=== PATIENT | female | born 1965 | race Hispanic/Latino ===

== ENCOUNTER 2024-02-05 12:18 | Inpatient (IN) | payer OTHER ==
--- OUTSIDE RECORDS SUMMARY | 2024-02-05 12:24 | XMS REPORT | Continuity of Care Document ---
Author Name Unknown Address [address] [facility] [place] [address] [facility] thconnect Address 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 Name Role Phone Gennaro Martínez Primary Care Physician JAMIE MADRID Attending Clinician Unavailab le [id number] Attending Clinician Unavailable NHI PAGE Attending Clinician Unavailable EVI BARTON Attending Clinician Unavailable MAIRA AL Attending Clinician Unavailable Maira Al MD Attending Clinician [phone] JORDYN BRITO Attending Clinician Unavailable Jordyn Brito NP Attending Clinician [phone] JORDYN BRITO Admitting Clinician Unavailable Payers Payer Name Policy Type Policy Number Effective Date Expirati on Date Source [facility] 9 [id number] 2023 00:00:00 Problems Condition Name Condition Details Condition Category Status Onset Date Resolution Date Last Treatment Date Treating Clinician Comments Source Chest pain Chest pain Disease Active 11-26 00:00: 00 Sarah ulrich Encounter for screening mammogram for breast cancer Encounter for screening mammogram for breast cancer Disease Active 09-23 00:00: 00 Sarah ulrich Immunodefi ciency due to poorly controlled type 2 diabetes (CMS/HCC) (multi HCC) Immunodefi ciency due to poorly controlled type 2 diabetes (CMS/HCC) (multi HCC) Disease Active 09-23 00:00: 00 Sarah ulrich Type 2 diabetes mellitus with hyperlipid emia (multi HCC) Type 2 diabetes mellitus with hyperlipid emia (multi HCC) Disease Active 09-23 00:00: 00 Sarah ulrich Primary hypertensi on Primary hypertensi on Disease Active 08-19 00:00: 00 Sarah ulrich Type 2 diabetes mellitus with retinopath y, with long-term current use of insulin (multi HCC) Type 2 diabetes mellitus with retinopath y, with long-term current use of insulin (multi HCC) Disease Active 08-19 00:00: 00 Sarah ulrich Encounter for screening for lipid disorder Encounter for screening for lipid disorder Disease Active 08-19 00:00: 00 Sarah ulrich No known active problems No known active problems Disease [facility] Allergies, Adverse Reactions, Alerts Allergy Name Allergy Type Status Severity Reaction(s) Onset Date Inactive Date Treating Clinician Comments Source Liraglut ashley Propensi ty to adverse reaction s Active Nausea and Vomiting 2021-05 00:00: 00 Sarah ulrich Liraglut ashley Propensi ty to adverse reaction s Active Unknown - See comments 2021-05 00:00: 00 [facility] LIRAGLUT ASHLEY DRUG INGREDI Active Unknown-Cmnt 2021-05 00:00: 00 [facility] NO KNOWN ALLERGIE S Drug Class Active [facility] Social History Social Habit Start Date Stop Date Quantity Comments Source Sexual orientation 2023-08-01 17:35:13 Heterosexual (finding) Sarah Smith - External History of tobacco use Passive smoker Sarah tilley - External Alcoholic beverage intake 2023-11-27 00:00:00 2023-11-27 00:00:00 Lifetime non-drinker (finding) Sarah Smith - External History of Social function 2023-11-27 00:00:00 2023-11-27 00:00:00 Sarah Alexander Cigarette pack-years 2023-09-24 00:00:00 2023-09-24 00:00:00 Sarah Tirado External Cigarettes smoked current (pack per day) - Reported 2023-09-24 00:00:00 2023-09-24 00:00:00 Sarah Alexander Exposure to SARS-CoV-2 (event) 2022-03-13 00:00:00 2022-03-23 16:21:00 Not sure [facility] Sex assigned at 1965 00:00:00 1965 00:00:00 F Sarah Tirado External Smoking Status Start Date Stop Date Source Tobacco smoking consumption unknown [facility] Smokes tobacco daily 2023-09-24 00:00:00 Sarah Tirado External Medications Ordered Medication Name Filled Medication Name Start Date Stop Date Current Medication? Ordering Clinician Indication Dosage Frequency Signature (SIG) Comments Components Source Duloxetine HCl [address] Particles 11-26 08:25: 04 Yes Sarah ulrich Sitagliptin -Metformin HCl (Janumet) 50-1000 MG oral Tablet 11-26 08:25: 04 Yes Sarah ulrich Trulicity 0.75 MG/0.5ML subcutaneou s Solution Pen-injecto r 11-26 00:00: 00 Yes [id number] .75mg Q1W Inject 0.75 mg into the skin once a week. Sarah ulrich glipiZIDE 5 MG oral Tablet 11-26 00:00: 00 Yes [id number] 5mg Take 1 tablet (5 mg total) by mouth daily (before a meal). Sarah ulrich Insulin Detemir (Levemir FlexPen) 100 UNIT/ML subcutaneou s Solution Pen-injecto r 09-14 00:00: 00 11-26 00:00 :00 No 25 units sc twice daily. Sarah ulrich Atorvastati n Calcium 20 MG oral Tablet 08-25 00:00: 00 Yes [id number] 20mg QD Take 1 tablet (20 mg total) by mouth nightly. Sarah ulrich Duloxetine HCl [address] Particles 08-19 14:09: 14 Yes Sarah ulrich Sitagliptin -Metformin HCl (Janumet) 50-1000 MG oral Tablet 08-19 14:09: 14 Yes Sarah ulrich Insulin Glargine (Lantus SoloStar) 100 UNIT/ML subcutaneou s Solution Pen-injecto r 08-19 00:00: 00 Yes [id number] Inject 25 units in the morning and 25 units at night.. Sarah ulrich maalox:diph enhydrAMINE :lidocaine 2 % viscous 1:1:1 (FIRST-MOUT HWASH BLM) oral suspension 15 mL 06-26 07:15: 00 06-26 07:12 :00 No 15mL 15 mL, Oral, ONCE, 1 dose, On Thu06/26/23 at 0115, Routine [facility] insulin regular human (HUMULIN R) injection 6 Units 06-26 07:15: 00 06-26 06:32 :00 No 6U 6 Units, Subcutaneo us, ONCE, 1 dose, On Thu06/26/23 at 0115, Routine
Indicatio n for insulin: Hyperglyce [facility] NaCl 0.9% (NS) IV infusion 1,000 mL 06-26 07:15: 00 06-26 07:14 :00 No 1000mL at 999 mL/hr, Intravenou s, ONCE, 1 dose, On Thu06/26/23 at 0115, [facility] ondansetron (ZOFRAN (PF)) injection 4 mg 06-26 06:00: 00 06-26 05:54 :00 No 4mg 4 mg, Slow IV Push, ONCE, 1 dose, On Thu06/26/23 at 0000, [facility] pantoprazol e (PROTONIX) 40 mg EC tablet 06-26 00:00: 00 Yes [id number] 40mg Take 1 tablet by mouth in the morning. [facility] proMETHazin e 12.5 mg tablet 06-26 00:00: 00 Yes [id number] 12.5mg Take 1 tablet by mouth every 4 (four) hours as needed for Nausea and Vomiting (N/V). [facility] Ibuprofen (MOTRIN) 800 MG oral Tablet 2022-05 0 00:00: 00 Yes Sarah ulrich hydrOXYzine HCl 10 MG oral Tablet 02-19 00:00: 00 Yes Sarah ulrich Atorvastati n Calcium 10 MG oral Tablet 12-03 00:00: 00 Yes Sarah ulrich Alendronate Sodium 70 MG oral Tablet 12-03 00:00: 00 Yes Sarah ulrich Gabapentin 400 MG oral Capsule 12-03 00:00: 00 Yes Sarah ulrich Insulin Glargine (Lantus SoloStar) 100 UNIT/ML subcutaneou s Solution Pen-injecto r 12-03 00:00: 00 08-19 00:00 :00 No Sarah ulrich Gabapentin 100 MG oral Capsule 09-03 00:00: 00 Yes Sarah ulrich Metoprolol Succinate 25 MG oral TABLET SR 24 HR 09-03 00:00: 00 Yes Sarah ulrich Indomethaci n CR 75 MG oral Cap CR 09-03 00:00: 00 Yes Sarah ulrich TAKE 1 CAPSULE TWICE DAILY WITH MEALS. 2021-05 00:00: 00 No NaCl 0.9% (NS) bolus infusion 1,000 mL 2021-05 23:15: 00 03-24 00:10 :00 No 1000mL at 999 mL/hr, 1,000 mL, IV Infusion, ONCE, 1 dose, On 03/23/22 at 1815, MELVINA [facility] HYDROcodone -acetaminop hen (NORCO 5) 5-325 mg tablet 1 tablet 2021-05 21:30: 00 03-23 21:36 :00 No 1{tbl} 1 tablet, Oral, ONCE, 1 dose, On 03/23/22 at 1630, MELVINA [facility] methocarbam oL (ROBAXIN) tablet 1,000 mg 2021-05 21:30: 00 03-23 21:36 :00 No 1000mg 1,000 mg, Oral, ONCE, 1 dose, On 03/23/22 at 1630, [facility] metformin HCl (METFORMIN ORAL) 2021-05 19:27: 57 Yes Take by mouth. [facility] ibuprofen 600 mg tablet 2021-05 00:00: 00 Yes [id number] 600mg Take 1 tablet by mouth every 6 (six) hours as needed for Pain (scale 1-3) or Pain (scale 4-6). [facility] traMADoL 50 mg tablet 2021-05 00:00: 00 03-31 05:59 :00 No [id number] 50mg Take 1 tablet by mouth every 6 (six) hours as needed for Pain (scale 4-6) or Pain (scale 7-10) for up to 7 days. Indication s: acute pain [facility] methocarbam oL 500 mg tablet 2021-05 00:00: 00 03-27 04:59 :00 No [id number] 1000mg Take 2 tablets by mouth 4 (four) times daily for 3 days. [facility] Dose Unknown 9-16 00:00: 00 No cyclobenzap rine 10 mg tablet 8-01 00:00: 00 No 1mg Ozempic 0.25 mg or 0.5 mg (2 mg/1.5 mL) subcutaneou s pen injector 7-27 00:00: 00 No mg(2 mg/1.5 mL) Ozempic 0.25 mg or 0.5 mg (2 mg/1.5 mL) subcutaneou s pen injector 12-18 00:00: 00 No mg(2 mg/1.5 mL) hydrochloro thiazide 25 mg tablet 12-12 00:00: 00 No 1mg atorvastati n 10 mg tablet 12-12 00:00: 00 No 1mg pioglitazon e 45 mg tablet 12-12 00:00: 00 No 1mg metformin ER 750 mg tablet,exte nded release 24 hr 12-12 00:00: 00 No 1mg glimepiride 4 mg tablet 12-12 00:00: 00 No 1mg hydrochloro thiazide 25 mg tablet 12-12 00:00: 00 No 1mg atorvastati n 10 mg tablet 12-12 00:00: 00 No 1mg Dose Unknown 12-12 00:00: 00 No metformin ER 750 mg tablet,exte nded release 24 hr 12-12 00:00: 00 No 1mg glimepiride 4 mg tablet 12-12 00:00: 00 No 1mg Dose Unknown 12-02 00:00: 00 No Dose Unknown 12-02 00:00: 00 No indomethaci n ER 75 mg capsule,ext ended release 11-04 00:00: 00 No 1mg indomethaci n ER 75 mg capsule,ext ended release 11-04 00:00: 00 No 1mg Victoza 3-Jose 0.6 mg/0.1 mL (18 mg/3 mL) subcutaneou s pen injector 10-29 00:00: 00 No (18 mg/3 mL) lidocaine 5 % topical patch 10-29 00:00: 00 No 1% gabapentin 400 mg capsule 10-29 00:00: 00 No 1mg Victoza 3-Jose 0.6 mg/0.1 mL (18 mg/3 mL) subcutaneou s pen injector 10-29 00:00: 00 No (18 mg/3 mL) lidocaine 5 % topical patch 10-29 00:00: 00 No 1% gabapentin 400 mg capsule 10-29 00:00: 00 No 1mg Dose Unknown 3- 00:00: 00 No Dose Unknown 07-27 00:00: 00 No hydrochloro thiazide 25 mg tablet 07-24 00:00: 00 No 1mg hydrochloro thiazide 25 mg tablet 07-24 00:00: 00 No 1mg Victoza 3-Jose 0.6 mg/0.1 mL (18 mg/3 mL) subcutaneou s pen injector 07-23 00:00: 00 No (18 mg/3 mL) lidocaine 5 % topical patch 07-23 00:00: 00 No 1% pioglitazon e 45 mg tablet 07-23 00:00: 00 No 1mg atorvastati n 10 mg tablet 07-23 00:00: 00 No 1mg glimepiride 4 mg tablet 07-23 00:00: 00 No 1mg metformin ER 750 mg tablet,exte nded release 24 hr 07-23 00:00: 00 No 1mg alendronate 70 mg tablet 07-23 00:00: 00 No 1mg gabapentin 400 mg capsule 07-23 00:00: 00 No 1mg indomethaci n ER 75 mg capsule,ext ended release 07-23 00:00: 00 No 1mg Victoza 3-Jose 0.6 mg/0.1 mL (18 mg/3 mL) subcutaneou s pen injector 07-23 00:00: 00 No (18 mg/3 mL) lidocaine 5 % topical patch 07-23 00:00: 00 No 1% pioglitazon e 45 mg tablet 07-23 00:00: 00 No 1mg atorvastati n 10 mg tablet 07-23 00:00: 00 No 1mg glimepiride 4 mg tablet 07-23 00:00: 00 No 1mg metformin ER 750 mg tablet,exte nded release 24 hr 07-23 00:00: 00 No 1mg alendronate 70 mg tablet 07-23 00:00: 00 No 1mg gabapentin 400 mg capsule 07-23 00:00: 00 No 1mg indomethaci n ER 75 mg capsule,ext ended release 07-23 00:00: 00 No 1mg Dose Unknown 2020-05 00:00: 00 No Dose Unknown 2020-05 00:00: 00 No Dose Unknown 2020-05 00:00: 00 No Dose Unknown 2020-05 00:00: 00 No Dose Unknown 2020-05 00:00: 00 No Dose Unknown 2020-05 00:00: 00 No Dose Unknown 2020-05 00:00: 00 No Dose Unknown 2020-05 00:00: 00 No Dose Unknown 2020-05 00:00: 00 No Dose Unknown 2020-05 00:00: 00 No Dose Unknown 2020-05 00:00: 00 No Dose Unknown 2020-05 00:00: 00 No Dose Unknown 2020-05 00:00: 00 No Dose Unknown 2020-05 00:00: 00 No Dose Unknown 2020-05 00:00: 00 No Dose Unknown 2020-05 00:00: 00 No Dose Unknown 2020-05 00:00: 00 No Dose Unknown 2020-05 00:00: 00 No lidocaine 5 % topical patch 8 00:00: 00 No 1% pioglitazon e 45 mg tablet 8 00:00: 00 No 1mg atorvastati n 10 mg tablet 8 00:00: 00 No 1mg metformin ER 750 mg tablet,exte nded release 24 hr 01-01 00:00: 00 No 1mg glimepiride 4 mg tablet 8- 00:00: 00 No 1mg alendronate 70 mg tablet 8 00:00: 00 No 1mg gabapentin 400 mg capsule 8- 00:00: 00 No 1mg indomethaci n ER 75 mg capsule,ext ended release 01-01 00:00: 00 No 1mg lidocaine 5 % topical patch 8- 00:00: 00 No 1% pioglitazon e 45 mg tablet 8- 00:00: 00 No 1mg atorvastati n 10 mg tablet 8- 00:00: 00 No 1mg metformin ER 750 mg tablet,exte nded release 24 hr 8- 00:00: 00 No 1mg glimepiride 4 mg tablet 8- 00:00: 00 No 1mg alendronate 70 mg tablet 8- 00:00: 00 No 1mg gabapentin 400 mg capsule 8- 00:00: 00 No 1mg indomethaci n ER 75 mg capsule,ext ended release 01-01 00:00: 00 No 1mg atorvastati n 10 mg tablet - 00:00: 00 No 1mg pioglitazon e 45 mg tablet - 00:00: 00 No 1mg metformin ER 500 mg tablet,exte nded release 24 hr - 00:00: 00 No 1mg glimepiride 4 mg tablet -06 00:00: 00 No 1mg metformin ER 750 mg tablet,exte nded release 24 hr - 00:00: 00 No 1mg alendronate 70 mg tablet -06 00:00: 00 No 1mg gabapentin 400 mg capsule - 00:00: 00 No 1mg indomethaci n ER 75 mg capsule,ext ended release - 00:00: 00 No 1mg atorvastati n 10 mg tablet - 00:00: 00 No 1mg pioglitazon e 45 mg tablet -06 00:00: 00 No 1mg metformin ER 500 mg tablet,exte nded release 24 hr -06 00:00: 00 No 1mg glimepiride 4 mg tablet -06 00:00: 00 No 1mg metformin ER 750 mg tablet,exte nded release 24 hr - 00:00: 00 No 1mg alendronate 70 mg tablet 0 - 00:00: 00 No 1mg gabapentin 400 mg capsule 0 - 00:00: 00 No 1mg indomethaci n ER 75 mg capsule,ext ended release - 00:00: 00 No 1mg Voltaren 1 % topical gel 0 -18 00:00: 00 No 1% cyclobenzap rine 10 mg tablet 0 -18 00:00: 00 No 1mg Voltaren 1 % topical gel -18 00:00: 00 No 1% cyclobenzap rine 10 mg tablet 18 00:00: 00 No 1mg atorvastati n 10 mg tablet - 00:00: 00 No 1mg glimepiride 4 mg tablet 0 - 00:00: 00 No 1mg metformin ER 500 mg tablet,exte nded release 24 hr - 00:00: 00 No 1mg alendronate 70 mg tablet 0 - 00:00: 00 No 1mg pioglitazon e 15 mg tablet - 00:00: 00 No 1mg gabapentin 400 mg capsule - 00:00: 00 No 1mg indomethaci n ER 75 mg capsule,ext ended release - 00:00: 00 No 1mg atorvastati n 10 mg tablet 0 - 00:00: 00 No 1mg glimepiride 4 mg tablet 0 - 00:00: 00 No 1mg metformin ER 500 mg tablet,exte nded release 24 hr - 00:00: 00 No 1mg alendronate 70 mg tablet 0 -12 00:00: 00 No 1mg pioglitazon e 15 mg tablet 0 -12 00:00: 00 No 1mg gabapentin 400 mg capsule 0 1-12 00:00: 00 No 1mg indomethaci n ER 75 mg capsule,ext ended release - 00:00: 00 No 1mg glimepiride 4 mg tablet 2019-05 009 00:00: 00 No 1mg pioglitazon e 15 mg tablet 2019-05 009 00:00: 00 No 1mg glimepiride 4 mg tablet 2019-05 00:00: 00 No 1mg pioglitazon e 15 mg tablet 2019-05 00:00: 00 No 1mg atorvastati n 10 mg tablet 2019-05 0- 00:00: 00 No 1mg glimepiride 2 mg tablet 2019-05 0 00:00: 00 No 1mg metformin ER 500 mg tablet,exte nded release 24 hr 2019-05 0 00:00: 00 No 1mg alendronate 70 mg tablet 2019-05 0 00:00: 00 No 1mg indomethaci n ER 75 mg capsule,ext ended release 2019-05 0 00:00: 00 No 1mg gabapentin 400 mg capsule 2019-05 0 00:00: 00 No 1mg atorvastati n 10 mg tablet 2019-05 0 00:00: 00 No 1mg glimepiride 2 mg tablet 2019-05 0 00:00: 00 No 1mg metformin ER 500 mg tablet,exte nded release 24 hr 2019-05 0 00:00: 00 No 1mg alendronate 70 mg tablet 2019-05 0 00:00: 00 No 1mg indomethaci n ER 75 mg capsule,ext ended release 2019-05 0 00:00: 00 No 1mg gabapentin 400 mg capsule 2019-05 0 00:00: 00 No 1mg atorvastati n 10 mg tablet 12-11 00:00: 00 No 1mg metformin ER 500 mg tablet,exte nded release 24 hr 12-11 00:00: 00 No 1mg glimepiride 2 mg tablet 12-11 00:00: 00 No 1mg alendronate 70 mg tablet 12-11 00:00: 00 No 1mg indomethaci n ER 75 mg capsule,ext ended release 12-11 00:00: 00 No 1mg atorvastati n 10 mg tablet 12-11 00:00: 00 No 1mg metformin ER 500 mg tablet,exte nded release 24 hr 12-11 00:00: 00 No 1mg glimepiride 2 mg tablet 12-11 00:00: 00 No 1mg alendronate 70 mg tablet 12-11 00:00: 00 No 1mg indomethaci n ER 75 mg capsule,ext ended release 12-11 00:00: 00 No 1mg atorvastati n 10 mg tablet 11-27 00:00: 00 No 1mg metformin ER 500 mg tablet,exte nded release 24 hr 11-27 00:00: 00 No 1mg alendronate 70 mg tablet 11-27 00:00: 00 No 1mg gabapentin 400 mg capsule 11-27 00:00: 00 No 1mg indomethaci n ER 75 mg capsule,ext ended release 11-27 00:00: 00 No 1mg atorvastati n 10 mg tablet 11-27 00:00: 00 No 1mg metformin ER 500 mg tablet,exte nded release 24 hr 11-27 00:00: 00 No 1mg alendronate 70 mg tablet 11-27 00:00: 00 No 1mg gabapentin 400 mg capsule 11-27 00:00: 00 No 1mg indomethaci n ER 75 mg capsule,ext ended release 11-27 00:00: 00 No 1mg diclofenac sodium 75 mg tablet,areli yed release 09-12 00:00: 00 No 1mg atorvastati n 10 mg tablet 09-12 00:00: 00 No 1mg glimepiride 2 mg tablet 09-12 00:00: 00 No 1mg metformin ER 500 mg tablet,exte nded release 24 hr 09-12 00:00: 00 No 1mg diclofenac sodium 75 mg tablet,areli yed release 09-12 00:00: 00 No 1mg atorvastati n 10 mg tablet 09-12 00:00: 00 No 1mg glimepiride 2 mg tablet 09-12 00:00: 00 No 1mg metformin ER 500 mg tablet,exte nded release 24 hr 09-12 00:00: 00 No 1mg alendronate 70 mg tablet 09-12 00:00: 00 No 1mg gabapentin 100 mg capsule 09-12 00:00: 00 No 12mg gabapentin 300 mg capsule 09-12 00:00: 00 No 1mg alendronate 70 mg tablet 09-12 00:00: 00 No 1mg gabapentin 100 mg capsule 09-12 00:00: 00 No 12mg gabapentin 300 mg capsule 09-12 00:00: 00 No 1mg alendronate 70 mg tablet 2018-05 00:00: 00 No 1mg alendronate 70 mg tablet 2018-05 00:00: 00 No 1mg diclofenac sodium 75 mg tablet,areli yed release 2018-05 00:00: 00 No 1mg glimepiride 2 mg tablet 2018-05 00:00: 00 No 1mg diclofenac sodium 75 mg tablet,areli yed release 2018-05 00:00: 00 No 1mg glimepiride 2 mg tablet 2018-05 00:00: 00 No 1mg atorvastati n 10 mg tablet 2018-05 00:00: 00 No 1mg metformin ER 500 mg tablet,exte nded release 24 hr 2018-05 00:00: 00 No 1mg gabapentin 100 mg capsule 2018-05 00:00: 00 No 12mg atorvastati n 10 mg tablet 2018-05 00:00: 00 No 1mg metformin ER 500 mg tablet,exte nded release 24 hr 2018-05 00:00: 00 No 1mg gabapentin 100 mg capsule 2018-05 00:00: 00 No 12mg cyclobenzap rine 10 mg tablet 02-11 00:00: 00 03-23 00:00 :00 No [id number] 10mg Take 1 tablet by mouth 3 (three) times daily. [facility] diclofenac 50 mg EC tablet 02-04 00:00: 00 03-23 00:00 :00 No 50mg Take 1 tablet by mouth 2 (two) times daily with meals. [facility] gabapentin 100 mg capsule 01-25 00:00: 00 No 12mg gabapentin 100 mg capsule 903 00:00: 00 No 12mg lisinopril 2.5 mg tablet 14 00:00: 00 No 1mg glimepiride 2 mg tablet 14 00:00: 00 No 1mg lisinopril 2.5 mg tablet 01-05 00:00: 00 No 1mg glimepiride 2 mg tablet 01-05 00:00: 00 No 1mg metformin ER 500 mg tablet,exte nded release 24 hr 10-14 00:00: 00 No 1mg metformin ER 500 mg tablet,exte nded release 24 hr 10-14 00:00: 00 No 1mg triamcinolo ne acetonide 0.1 % topical cream 10-13 00:00: 00 No 1% metformin ER 500 mg tablet,exte nded release 24 hr 10-13 00:00: 00 No 1mg glimepiride 1 mg tablet 10-13 00:00: 00 No 2mg lisinopril 2.5 mg tablet 10-13 00:00: 00 No 1mg triamcinolo ne acetonide 0.1 % topical cream 10-13 00:00: 00 No 1% metformin ER 500 mg tablet,exte nded release 24 hr 10-13 00:00: 00 No 1mg glimepiride 1 mg tablet 10-13 00:00: 00 No 2mg lisinopril 2.5 mg tablet 10-13 00:00: 00 No 1mg metformin ER 500 mg tablet,exte nded release 24 hr 08-16 00:00: 00 No 1mg glimepiride 1 mg tablet 08-16 00:00: 00 No 2mg Levemir U-100 Insulin 100 unit/mL subcutaneou s solution 08-16 00:00: 00 No 15unit/ mL lisinopril 2.5 mg tablet 08-16 00:00: 00 No 1mg metformin ER 500 mg tablet,exte nded release 24 hr 08-16 00:00: 00 No 1mg glimepiride 1 mg tablet 08-16 00:00: 00 No 2mg Levemir U-100 Insulin 100 unit/mL subcutaneou s solution 08-16 00:00: 00 No 15unit/ mL lisinopril 2.5 mg tablet 08-16 00:00: 00 No 1mg Levemir U-100 Insulin 100 unit/mL subcutaneou s solution 06-07 00:00: 00 No 6unit/m L Levemir U-100 Insulin 100 unit/mL subcutaneou s solution 06-07 00:00: 00 No 6unit/m L Cipro 500 mg tablet 2017-05 00:00: 00 No 1mg Cipro 500 mg tablet 2017-05 00:00: 00 No 1mg glimepiride 1 mg tablet 2017-05 00:00: 00 No 2mg glimepiride 1 mg tablet 2017-05 00:00: 00 No 2mg glimepiride 1 mg tablet 2017-05 00:00: 00 No 5mg glimepiride 1 mg tablet 2017-05 00:00: 00 No 5mg Immunizations Ordered Immunization Name Filled Immunization Name Date Status Comments Source Influenza, seasonal, inj 2021-04-23 00:00:00 Completed Influenza, seasonal, inj 2021-04-23 00:00:00 Completed Moderna COVID-19 Vaccine 2021-01-29 00:00:00 Completed Moderna COVID-19 Vaccine 2021-01-29 00:00:00 Completed Moderna COVID-19 Vaccine 2020-08-08 00:00:00 Completed Moderna COVID-19 Vaccine 2020-08-08 00:00:00 Completed Moderna COVID-19 Vaccine 2020-06-29 00:00:00 Completed Moderna COVID-19 Vaccine 2020-06-29 00:00:00 Completed Influenza, Seasonal, Injectable Unknown Completed Sarah Smith - External Covid-19 Vaccine Moderna (Spikevax), Mrna-lnp, Gt Protein, Pf Unknown Completed Sarah Smith External Covid-19 Vaccine Moderna (Spikevax), Mrna-lnp, Gt Protein, Pf Unknown Completed Sarah Laureanoybold - External Covid-19 Vaccine Moderna (Spikevax), Mrna-lnp, Gt Protein, Pf Unknown Completed Sarah Laureanoybold - External Shingles IM (Shingrix) Unknown Completed Sarah Laureanoybold - External Influenza, Seasonal, Injectable Unknown Completed Sarah Lermaold - External Influenza, Seasonal, Injectable Unknown Completed Sarah Lermaold - External Covid-19 Vaccine Moderna (Spikevax), Mrna-lnp, Gt Protein, Pf Unknown Completed Sarah Laureanoybold - External Covid-19 Vaccine Moderna (Spikevax), Mrna-lnp, Gt Protein, Pf Unknown Completed Sarah Laureanoybold - External Covid-19 Vaccine Moderna (Spikevax), Mrna-lnp, Gt Protein, Pf Unknown Completed Sarah Laureanoybold - External Shingles IM (Shingrix) Unknown Completed Sarah Smith - External Vital Signs Vital Name Observation Time Observation Value Comments S ource Systolic blood pressure 2023-11-27 13:19:00 118 mm[Hg] Sarah Lermao ld - External Diastolic blood pressure 2023-11-27 13:19:00 68 mm[Hg] Sarah Lermao ld - External Heart rate 2023-11-27 13:19:00 112 /min Ovidio Smith - External Body temperature 2023-11-27 13:19:00 36.78 Anastasiya Sarah Smith - External Respiratory rate 2023-11-27 13:19:00 18 /min Sarah Smith - External Body height 2023-11-27 13:19:00 154.9 cm Alicia reyes Seybold - External Body weight 2023-11-27 13:19:00 51.71 kg Alicia reyes Seybold - External BMI 2023-11-27 13:19:00 21.54 kg/m2 Alicia reyes Seybshashank - External Oxygen saturation in Arterial blood by Pulse oximetry 2023-11-27 13:19:00 97 /min Sarah Lermao ld - External Systolic blood pressure 2023-09-24 19:09:00 122 mm[Hg] Sarah Lermao ld - External Diastolic blood pressure 2023-09-24 19:09:00 68 mm[Hg] Sarah Seybo ld - External Heart rate 2023-09-24 18:14:00 114 /min Viniciose y Seybold - External Body temperature 2023-09-24 18:14:00 36.28 Anastasiya Sarah Seybold - External Respiratory rate 2023-09-24 18:14:00 16 /min Sarah Seybold - External Body height 2023-09-24 18:14:00 154.9 cm Alicia ey Seybold - External Body weight 2023-09-24 18:14:00 50.349 kg Alicia ey Seybold - External BMI 2023-09-24 18:14:00 20.97 kg/m2 Alicia ey Seybold - External Systolic blood pressure 2023-08-20 18:55:00 124 mm[Hg] Sarah Seybo ld - External Diastolic blood pressure 2023-08-20 18:55:00 68 mm[Hg] Sarah Seybo ld - External Heart rate 2023-08-20 18:55:00 112 /min Viniciose y Seybold - External Body temperature 2023-08-20 18:55:00 36.67 Anastasiya Sarah Seybold - External Respiratory rate 2023-08-20 18:55:00 18 /min Sarah Seybold - External Body height 2023-08-20 18:55:00 154.9 cm Alicia ey Seybold - External Body weight 2023-08-20 18:55:00 50.519 kg Alicia ey Seybold - External BMI 2023-08-20 18:55:00 21.04 kg/m2 Alicia ey Seybold - External Oxygen saturation in Arterial blood by Pulse oximetry 2023-08-20 18:55:00 98 /min Sarah Laureanoybo ld - External Systolic blood pressure 2023-06-26 05:38:00 145 mm[Hg] [facility] Diastolic blood pressure 2023-06-26 05:38:00 87 mm[Hg] [facility] Heart rate 2023-06-26 05:38:00 102 /min [facility] Body temperature 2023-06-26 05:38:00 37.11 Anastasiya [facility] Respiratory rate 2023-06-26 05:38:00 16 /min [facility] Body height 2023-06-26 05:38:00 154.9 cm [facility] Body weight 2023-06-26 05:38:00 50.077 kg [facility] BMI 2023-06-26 05:38:00 20.86 kg/m2 [facility] Oxygen saturation in Arterial blood by Pulse oximetry 2023-06-26 05:38:00 100 /min [facility] Systolic blood pressure 2022-03-24 00:00:00 114 mm[Hg] [facility] Diastolic blood pressure 2022-03-24 00:00:00 54 mm[Hg] [facility] Heart rate 2022-03-24 00:00:00 104 /min [facility] Respiratory rate 2022-03-24 00:00:00 17 /min [facility] Oxygen saturation in Arterial blood by Pulse oximetry 2022-03-24 00:00:00 100 /min [facility] Body temperature 2022-03-23 21:21:00 36.61 Anastasiya [facility] Body height 2022-03-23 21:21:00 154.9 cm [facility] Body weight 2022-03-23 21:21:00 54.432 kg [facility] BMI 2022-03-23 21:21:00 22.67 kg/m2 [facility] BP Systolic 2022-03-25 10:47:00 141 mm[Hg] BP Diastolic 2022-03-25 10:47:00 71 mm[Hg] Weight Measured 2022-03-25 10:47:00 123.80 pounds Height Measured 2022-03-25 10:47:00 60.79 inches Body Temperature 2022-03-25 10:47:00 98.80 degrees Heart Rate 2022-03-25 10:47:00 100.00 /min Respiratory Rate 2022-03-25 10:47:00 18.00 /min BP Systolic 2021-12-18 10:13:00 121 mm[Hg] BP Diastolic 2021-12-18 10:13:00 78 mm[Hg] Weight Measured 2021-12-18 10:13:00 121.00 pounds Height Measured 2021-12-18 10:13:00 60.79 inches Body Temperature 2021-12-18 10:13:00 98.30 degrees Heart Rate 2021-12-18 10:13:00 113.00 /min Respiratory Rate 2021-12-18 10:13:00 17.00 /min BP Systolic 2021-10-29 11:37:00 137 mm[Hg] BP Diastolic 2021-10-29 11:37:00 84 mm[Hg] Weight Measured 2021-10-29 11:37:00 131.60 pounds Height Measured 2021-10-29 11:37:00 60.79 inches Body Temperature 2021-10-29 11:37:00 98.30 degrees Heart Rate 2021-10-29 11:37:00 105.00 /min Respiratory Rate 2021-10-29 11:37:00 18.00 /min BP Systolic 2021-07-24 15:00:00 106 mm[Hg] BP Diastolic 2021-07-24 15:00:00 71 mm[Hg] Weight Measured 2021-07-24 15:00:00 125.00 pounds Height Measured 2021-07-24 15:00:00 60.79 inches Body Temperature 2021-07-24 15:00:00 98.20 degrees Heart Rate 2021-07-24 15:00:00 117.00 /min Respiratory Rate 2021-07-24 15:00:00 17.00 /min BP Systolic 2021-04-23 10:14:00 128 mm[Hg] BP Diastolic 2021-04-23 10:14:00 82 mm[Hg] Weight Measured 2021-04-23 10:14:00 128.20 pounds Height Measured 2021-04-23 10:14:00 60.79 inches Body Temperature 2021-04-23 10:14:00 98.20 degrees Heart Rate 2021-04-23 10:14:00 113.00 /min Respiratory Rate 2021-04-23 10:14:00 16.00 /min BP Systolic 2021-04-09 08:33:00 144 mm[Hg] BP Diastolic 2021-04-09 08:33:00 87 mm[Hg] Weight Measured 2021-04-09 08:33:00 129.60 pounds Height Measured 2021-04-09 08:33:00 60.79 inches Body Temperature 2021-04-09 08:33:00 97.90 degrees Heart Rate 2021-04-09 08:33:00 109.00 /min Respiratory Rate 2021-04-09 08:33:00 16.00 /min BP Systolic 2021-01-01 09:45:00 121 mm[Hg] BP Diastolic 2021-01-01 09:45:00 75 mm[Hg] Weight Measured 2021-01-01 09:45:00 125.80 pounds Height Measured 2021-01-01 09:45:00 60.79 inches Body Temperature 2021-01-01 09:45:00 98.00 degrees Heart Rate 2021-01-01 09:45:00 105.00 /min Respiratory Rate 2021-01-01 09:45:00 16.00 /min BP Systolic 2020-09-25 09:03:00 126 mm[Hg] BP Diastolic 2020-09-25 09:03:00 79 mm[Hg] Weight Measured 2020-09-25 09:03:00 121.80 pounds Height Measured 2020-09-25 09:03:00 60.79 inches Body Temperature 2020-09-25 09:03:00 97.80 degrees Heart Rate 2020-09-25 09:03:00 102.00 /min Respiratory Rate 2020-09-25 09:03:00 17.00 /min BP Systolic 2020-08-09 17:02:00 117 mm[Hg] BP Diastolic 2020-08-09 17:02:00 65 mm[Hg] Weight Measured 2020-08-09 17:02:00 122.40 pounds Height Measured 2020-08-09 17:02:00 60.79 inches Body Temperature 2020-08-09 17:02:00 98.30 degrees Heart Rate 2020-08-09 17:02:00 115.00 /min Respiratory Rate 2020-08-09 17:02:00 18.00 /min BP Systolic 2020-02-29 09:31:00 146 mm[Hg] BP Diastolic 2020-02-29 09:31:00 81 mm[Hg] Weight Measured 2020-02-29 09:31:00 116.20 pounds Height Measured 2020-02-29 09:31:00 60.79 inches Body Temperature 2020-02-29 09:31:00 98.20 degrees Heart Rate 2020-02-29 09:31:00 108.00 /min Respiratory Rate 2020-02-29 09:31:00 BP Systolic 2019-11-22 10:02:00 115 mm[Hg] BP Diastolic 2019-11-22 10:02:00 70 mm[Hg] Weight Measured 2019-11-22 10:02:00 112.20 pounds Height Measured 2019-11-22 10:02:00 60.79 inches Body Temperature 2019-11-22 10:02:00 98.30 degrees Heart Rate 2019-11-22 10:02:00 102.00 /min Respiratory Rate 2019-11-22 10:02:00 16.00 /min Procedures Procedure Date / Time Performed Performing Clinician Source POCT GLUCOSE(AGE >30DAYS) 2023-06-26 07:14:00 Maira Al [facility] POCT GLUCOSE (AUTOMATED) 2023-06-26 07:11:00 Maira Al [facility] URINALYSIS 2023-06-26 06:01:00 Maira Al [facility] LIPASE 2023-06-26 05:56:00 Maira Al [facility] TROPONIN I 2023-06-26 05:56:00 Maira Al [facility] COMP. METABOLIC PANEL (43060) 2023-06-26 05:56:00 Maira Al [facility] CBC WITH DIFF 2023-06-26 05:56:00 Maira Al [facility] POCT GLUCOSE (AUTOMATED) 2023-06-26 05:41:00 Doctor Unassigned, Perrin [facility] NOTICE OF PRIVACY PRACTICES 2023-06-26 05:26:08 Doctor Unassigned, Perrin [facility] CONSENT/REFUSAL FOR DIAGNOSIS AND TREATMENT 2023-06-26 05:25:30 Doctor Unassigned, Perrin [facility] XR RIBS 3 VW RIGHT 2022-03-23 22:48:00 Jordyn Brito [facility] URINALYSIS 2022-03-23 21:42:00 Jordyn Brito [facility] XR CHEST 1 VW 2022-03-23 21:38:28 Jordyn Brito [facility] XR WRIST <3 VW RIGHT 2022-03-23 21:38:28 Stefan Brito [facility] LIPASE 2022-03-23 21:34:00 Jordyn Brito [facility] TROPONIN I 2022-03-23 21:34:00 Jordyn Brito [facility] THYROID STIMULATING HORMONE 2022-03-23 21:34:00 Jordyn Brito [facility] COMP. METABOLIC PANEL (28385) 2022-03-23 21:34:00 Jordyn Brito [facility] CBC WITH DIFF 2022-03-23 21:34:00 Jordyn Brito [facility] Plan of Care Planned Activity Planned Date Details Comments Source Goal Plan of Care Note [code = 63552-0] Goal Plan of Care Note [code = 38895-9] Goal Plan of Care Note [code = 03834-7] Goal Plan of Care Note [code = 81746-4] Goal Plan of Care Note [code = 60635-9] Goal Plan of Care Note [code = 59594-4] Goal Plan of Care Note [code = 38611-8] Goal Plan of Care Note [code = 77294-5] Goal Plan of Care Note [code = 34178-4] Goal Plan of Care Note [code = 60601-9] Goal Plan of Care Note [code = 81323-7] Goal Plan of Care Note [code = 16278-1] Goal Plan of Care Note [code = 03443-2] Goal Plan of Care Note [code = 37834-9] Goal Plan of Care Note [code = 44002-3] Goal Plan of Care Note [code = 04515-8] Goal Plan of Care Note [code = 11842-0] Goal Plan of Care Note [code = 57416-6] Goal Plan of Care Note [code = 41574-8] Goal Plan of Care Note [code = 30367-9] Goal Plan of Care Note [code = 14320-3] Goal Plan of Care Note [code = 62665-8] Goal Plan of Care Note [code = 56288-0] Goal Plan of Care Note [code = 04322-1] Goal Plan of Care Note [code = 43473-6] Goal Plan of Care Note [code = 31882-3] Goal Plan of Care Note [code = 66775-7] Goal Plan of Care Note [code = 34325-3] Goal Plan of Care Note [code = 43285-2] Goal Plan of Care Note [code = 64845-0] Goal Plan of Care Note [code = 41230-0] Goal Plan of Care Note [code = 42044-7] Goal Plan of Care Note [code = 87657-7] Goal Plan of Care Note [code = 10000-3] Goal Plan of Care Note [code = 07020-6] Goal Plan of Care Note [code = 05013-5] Goal Plan of Care Note [code = 54011-4] Goal Plan of Care Note [code = 62687-2] Goal Plan of Care Note [code = 33706-4] Goal Plan of Care Note [code = 19402-1] Goal Plan of Care Note [code = 58226-7] Goal Plan of Care Note [code = 16105-7] Goal Plan of Care Note [code = 61276-7] Goal Plan of Care Note [code = 90926-4] Encounters Start Date/Time End Date/Time Encounter Type Admission Type Attending [facility] Care Department Encounter ID Source 2024-02-26 09:00:00 2024-02-26 09:00:00 Outpatient JAMIE MADRID [id number] [facility] 2024-01-24 00:00:00 2024-01-24 00:00:00 Outpatient JAMIE MADRID [id number] [facility] 2024-01-22 09:05:00 2024-01-22 09:05:00 Outpatient LAB90 SARAH OCHOA [id number] [facility] 2024-01-11 00:00:00 2024-01-11 00:00:00 Outpatient JAMIE MADRID [id number] [facility] 2024-01-04 00:00:00 2024-01-04 00:00:00 Outpatient JAMIE MADRIDRAMIRO OCHOA [id number] [facility] 2023-12-29 13:10:00 2023-12-29 13:10:00 Outpatient NHI PAGE SARAH OCHOA [id number] [facility] 2023-12-10 00:00:00 2023-12-10 00:00:00 Outpatient JAMIE MADRID SARAH OCHOA [id number] [facility] 2023-12-05 00:00:00 2023-12-05 00:00:00 Outpatient JAMIE MADRID SARAH OCHOA [id number] [facility] 2023-11-27 08:30:00 2023-11-27 08:30:00 Outpatient JAMIE MADRID SARAH OCHOA [id number] [facility] 2023-11-03 00:00:00 2023-11-03 00:00:00 Outpatient JAMIE MADRID SARAH OCHOA [id number] [facility] 2023-09-24 13:30:00 2023-09-24 13:30:00 Outpatient JAMIE MADRID SARAH OCHOA [id number] [facility] 2023-09-15 00:00:00 2023-09-15 00:00:00 Outpatient EVI BARTON SARAH OCHOA [id number] [facility] 2023-09-14 00:00:00 2023-09-14 00:00:00 Outpatient EVI BARTON SARAH OCHOA [id number] [facility] 2023-09-09 00:00:00 2023-09-09 00:00:00 Outpatient JAMIE MADRID SARAH OCOHA [id number] [facility] 2023-09-06 00:00:00 2023-09-06 00:00:00 Outpatient SARAH OCHOA [id number] [facility] 2023-08-31 00:00:00 2023-08-31 00:00:00 Outpatient JAMIE MADRID SARAH OCHOA [id number] [facility] 2023-08-26 00:00:00 2023-08-26 00:00:00 Outpatient JAMIE MADRID [id number] [facility] 2023-08-20 14:45:00 2023-08-20 14:45:00 Outpatient LAB90 SARAH OCHO[facility] [id number] [facility] 2023-08-20 14:00:00 2023-08-20 14:00:00 Outpatient JAMIE MADRID [id number] [facility] 2023-06-25 23:41:00 2023-06-26 01:30:00 Emergency X MAIRA AL [facility] ERT [id number] [facility] 2023-06-25 23:41:00 2023-06-26 01:30:00 Emergency Maira Al [facility] [id number] [facility] 2023-05-08 09:55:57 2023-05-08 09:55:57 Outpatient SFA SFA 1215 Jerzy Sharpe Lenny 2022-12-18 09:37:43 2022-12-18 09:37:43 Outpatient SFA SFA [id number] Jerzy Sharpe Lenny 2022-12-02 10:42:48 2022-12-02 10:42:48 Outpatient SFA SFA 0711 Jerzy Sharpe Lenny 2022-09-17 15:40:40 2022-09-17 15:40:40 Outpatient SFA SFA [id number] Jerzy Galvez 2022-06-24 10:43:22 2022-06-24 10:43:22 Outpatient SFA SFA [id number] Jerzy Sharpe Lenny 2022-05-20 10:28:57 2022-05-20 10:28:57 Outpatient SFA SFA [id number] Jerzy Sharpe Lenny 2022-03-25 10:37:54 2022-03-25 10:37:54 Outpatient SFA SFA [id number] Jerzy Sharpe Lenny 2022-03-25 00:00:00 2022-03-25 00:00:00 Outpatient Visit [id number] 2022-03-23 16:21:00 2022-03-23 19:27:00 Emergency X JORDYN BRITO [facility] ERT [id number] [facility] 2022-03-23 16:21:00 2022-03-23 19:27:00 Emergency Jordyn Brito G [facility] [id number] [facility] 2021-12-18 00:00:00 2021-12-18 00:00:00 Outpatient Visit [id number] Results Test Description Test Time Test Comments Results Result Co mments Source [facility] GLUCOSE(AGE >30DAYS)2023-06-26 07:14:00* Test Item Value Reference Range Interpretation Comme [facility] POCT Glu (age>30days) (test code = 3342) 359 mg/dL 70-110 A Lab Interpretation (test cod e = 13627-9) Abnormal [facility] GLUCOSE (AUTOMATED)2023-06-26 05:42:33* Test Item Value Reference Range Interpretation Comme [facility] POCT GLU (test code = 7460939405) 485 mg/dL 70-110 HH Lab Interpretation (test cod e = 92549-7) [facility] [id number] 05:00:20* Test Item Value Reference Range Interpretation Comme [facility] GLUCOSE (test code = 2217) 377 MG/DL 70-99 H BUN (test code = 2208) 12 MG/DL 6-20 CREATININE (test code = 2214) 0.76 MG/DL 0.60-1.30 eGFR (2021 CKD-EPI) (test co de = 00535) 91 ML/MIN/1.73 >60 CALC BUN/CREAT (test code = 2234) 16 RATIO 6-28 SODIUM (test code = 2230) 135 MEQ/L 133-146 POTASSIUM (test code = 8) 4.0 MEQ/L 3.5-5.4 CHLORIDE (test code = 2215) 95 MEQ/L 95-107 CARBON DIOXIDE (test code = 6) 28 MEQ/L 19-31 CALCIUM (test code = 9) 9.6 MG/DL 8.5-10.5 PROTEIN, TOTAL (test code = 2228) 7.1 G/DL 6.1-8.3 ALBUMIN (test code = 2200) 3.9 G/DL 3.5-5.2 CALC GLOBULIN (test code = 0) 3.2 G/DL 1.9-3.7 CALC A/G RATIO (test code = 2233) 1.2 RATIO 1.0-2.6 BILIRUBIN, TOTAL (test code = 2206) <0.2 MG/DL <=1.2 ALKALINE PHOSPHATASE (test code = 2203) 131 U/L 40-136 AST (test code = 2217) 10 U/L 9-40 ALT (test code = 9) 7 U/L 5-40 ALBUMIN/CREATININE RATIO, URINE, [id number] 04:36:20* Test Item Value Reference Range Interpretation Comme nts CREATININE, URINE, CONC. (test code = 2072) 18.8 MG/DL NOT ESTAB ALBUMIN, URINE, RANDOM (test code = 98938) 2.9 MG/DL NOT ESTAB CALC ALBUMIN/CREAT, RND (test code = 84689) 154 MG/G <30 H Note: Albumin/Cr eatinine ratio reference interval reflects ADA and NKF guidelines. UNLESS OTHERWISE INDICATED, ALL TESTING PERFORMED AT [facility] [address] [facility] [place] [address] BACTERIOLOGIST FISHERY: JANETTE BARNES M.D. CLIA NUMBER [id number] [facility]. [id number] HEMOGLOBIN [id number] 03:25:40* Test Item Value Reference Range Interpretation Comme nts HEMOGLOBIN A1c (test code = 06360) 11.7 % 4.2-5.6 H [employer] GUIDELINES FOR HGB A1C: PREDIABETES/INCREASED RISK . . . . . . . 5.7-6.4% DIAGNOSIS OF DIABETES . . . . . . . . . >=6.5% WITH CONFIRMATION OR APPROPRIATE SYMPTOMS NOTE: ASSAY MAY BE AFFECTED BY HEMOGLOBINOPATHIES (SICKLE CELL ANEMIA, S-C DISEASE, OTHERS) OR ARTIFICIALLY LOWERED BY DECREASED RED CELL SURVIVAL (HEMOLYTIC ANEMIAS, BLOOD LOSS, ETC.). CONSIDER ALTERNATE TESTING OR LABORATORY CONSULTATION. COMPREHENSIVE METABOLIC [id number] 04:02:45* Test Item Value Reference Range Interpretation Comme nts GLUCOSE (test code = 2216) 370 MG/DL 70-99 H BUN (test code = 2207) 27 MG/DL 6-20 H CREATININE (test code = 2214) 1.04 MG/DL 0.60-1.30 eGFR (2020 CKD-EPI) (test code = 78686) 63 ML/MIN/1.73 >60 CALC BUN/CREAT (test code = 2235) 26 RATIO 6-28 SODIUM (test code = 2230) 135 MEQ/L 133-146 POTASSIUM (test code = 2228) 5.6 MEQ/L 3.5-5.4 H CHLORIDE (test code = 2215) 97 MEQ/L 95-107 CARBON DIOXIDE (test code = 2206) 27 MEQ/L 19-31 CALCIUM (test code = 2209) 10.1 MG/DL 8.5-10.5 PROTEIN, TOTAL (test code = 222) 7.2 G/DL 6.1-8.3 ALBUMIN (test code = 1) 4.0 G/DL 3.5-5.2 CALC GLOBULIN (test code = 2240) 3.2 G/DL 1.9-3.7 CALC A/G RATIO (test code = 2234) 1.3 RATIO 1.0-2.6 BILIRUBIN, TOTAL (test code = 220) <0.2 MG/DL See_Comment [Automated me ssage] The system which generated this result transmitted reference range: <=1.2. The reference range was not used to interpret this result as normal/abnormal. ALKALINE PHOSPHATASE (test code = 4) 176 U/L 40-136 H AST (test code = 2218) 8 U/L 9-40 L ALT (test code = 2219) 8 U/L 5-40 HEMOGLOBIN [id number] 02:36:21* Test Item Value Reference Range Interpretation Comme [facility] HEMOGLOBIN A1c (test code = 09003) 7.7 % 4.2-5.6 H [employer] GUIDELINES FOR HGB A1C: PREDIABETES/INCREASED RISK . . . . . . . 5.7-6.4% DIAGNOSIS OF DIABETES . . . . . . . . . >=6.5% WITH CONFIRMATION OR APPROPRIATE SYMPTOMS NOTE: ASSAY MAY BE AFFECTED BY HEMOGLOBINOPATHIES (SICKLE CELL ANEMIA, S-C DISEASE, OTHERS) OR ARTIFICIALLY LOWERED BY DECREASED RED CELL SURVIVAL (HEMOLYTIC ANEMIAS, BLOOD LOSS, ETC.). CONSIDER ALTERNATE TESTING OR LABORATORY CONSULTATION. UNLESS OTHERWISE INDICATED, ALL [facility] [employer]. [address] [place] [address] BACTERIOLOGIST FISHERY: JANETTE BARNES M.D. CLIA NUMBER [id number] [place]. [id number] HEMOGLOBIN [id number] 03:29:47* Test Item Value Reference Range Interpretation Comme [facility] HEMOGLOBIN A1c (test code = 49540) 8.9 % 4.2-5.6 H [employer] GUIDELINES FOR HGB A1C: PREDIABETES/INCREASED RISK . . . . . . . 5.7-6.4% DIAGNOSIS OF DIABETES . . . . . . . . . >=6.5% WITH CONFIRMATION OR APPROPRIATE SYMPTOMS NOTE: ASSAY MAY BE AFFECTED BY HEMOGLOBINOPATHIES (SICKLE CELL ANEMIA, S-C DISEASE, OTHERS) OR ARTIFICIALLY LOWERED BY DECREASED RED CELL SURVIVAL (HEMOLYTIC ANEMIAS, BLOOD LOSS, ETC.). CONSIDER ALTERNATE TESTING OR LABORATORY CONSULTATION. UNLESS OTHERWISE INDICATED, ALL TESTING PERFORMED [facility] [employer] [employer], [facility]. [address] [place] [address] BACTERIOLOGIST FISHERY: FAITH ALMANZA M.D. CLIA NUMBER [id number] [place]. [id number] URIC [id number] 05:11:30* Test Item Value Reference Range Interpretation Comme [facility] URIC ACID (test code = 2233) 5.2 MG/DL 2.7-6.1 COMPREHENSIVE METABOLIC [id number] 05:11:30* Test Item Value Reference Range Interpretation Comme nts GLUCOSE (test code = 2217) 202 MG/DL 70-99 H BUN (test code = 2208) 23 MG/DL 6-20 H CREATININE (test code = 2214) 1.04 MG/DL 0.60-1.30 eGFR (2020 CKD-EPI) (test code = ) 63 ML/MIN/1.73 >60 CALC BUN/CREAT (test code = 2234) 22 RATIO 6-28 SODIUM (test code = 2230) 139 MEQ/L 133-146 POTASSIUM (test code = 2227) 5.4 MEQ/L 3.5-5.4 CHLORIDE (test code = 2214) 102 MEQ/L 95-107 CARBON DIOXIDE (test code = 2205) 23 MEQ/L 19-31 CALCIUM (test code = 2208) 10.2 MG/DL 8.5-10.5 PROTEIN, TOTAL (test code = 2228) 7.5 G/DL 6.1-8.3 ALBUMIN (test code = 2200) 4.3 G/DL 3.5-5.2 CALC GLOBULIN (test code = 2239) 3.2 G/DL 1.9-3.7 CALC A/G RATIO (test code = 2233) 1.3 RATIO 1.0-2.6 BILIRUBIN, TOTAL (test code = 2206) <0.2 MG/DL See_Comment [Automated me ssage] The system which generated this result transmitted reference range: <=1.2. The reference range was not used to interpret this result as normal/abnormal. ALKALINE PHOSPHATASE (test code = 2203) 125 U/L 40-136 AST (test code = 2217) 13 U/L 9-40 ALT (test code = 2218) 10 U/L 5-40 UNLESS OTHERWISE INDICATED, ALL TESTING PERFORMED [employer] [employer] [address] [place] [address] BACTERIOLOGIST FISHERY: FAITH ALMANZA M.D. CLIA NUMBER [id number] [place]. [id number] CK, [id number] 05:57:50* Test Item Value Reference Range Interpretation Comme nts CK, TOTAL (test code = 2013) 28 U/L 28-176 UNLESS OTHERWISE INDICATED, ALL TESTING PERFORMED [employer], [facility]. [address] [place] [address] BACTERIOLOGIST FISHERY: FAITH ALMANZA M.D. CLIA NUMBER [id number] [place]. [id number] CK, TOTAL [ADDED]2021-12-19 00:00:00* Test Item Value Reference Range Interpretation Comme nts CK, TOTAL (test code = 2013) 28 U/L CK, TOTAL [ADDED]2021-12-19 00:00:00* Test Item Value Reference Range Interpretation Comme nts CK, TOTAL (test code = 2013) 28 U/L HEMOGLOBIN [id number] 06:38:51* Test Item Value Reference Range Interpretation Comme [facility] HEMOGLOBIN A1c (test code = 24041) 10.2 % 4.2-5.6 H [employer] GUIDELINES FOR HGB A1C: PREDIABETES/INCREASED RISK . . . . . . . 5.7-6.4% DIAGNOSIS OF DIABETES . . . . . . . . . >=6.5% WITH CONFIRMATION OR APPROPRIATE SYMPTOMS NOTE: ASSAY MAY BE AFFECTED BY HEMOGLOBINOPATHIES (SICKLE CELL ANEMIA, S-C DISEASE, OTHERS) OR ARTIFICIALLY LOWERED BY DECREASED RED CELL SURVIVAL (HEMOLYTIC ANEMIAS, BLOOD LOSS, ETC.). CONSIDER ALTERNATE TESTING OR LABORATORY CONSULTATION. CK, [id number] 06:17:42* Test Item Value Reference Range Interpretation Comme [facility] CK, TOTAL (test code = 2013) 47 U/L 28-176 UNLESS OTHERWISE INDICATED, ALL TESTING [facility]FOR[facility] [address] [place] [address] BACTERIOLOGIST FISHERY: FAITH ALMANZA M.D. CLIA NUMBER [id number] [facility]. [id number] LIPID [id number] 06:17:02* Test Item Value Reference Range Interpretation Comme nts CHOLESTEROL (test code = 2210) 191 MG/DL <200 TRIGLYCERIDES (test code = 2232) 214 MG/DL <150 H HDL CHOLESTEROL (test code = 2220) 58 MG/DL >39 CALC LDL CHOL (test code = 2237) 100 MG/DL <100 H NOTE: CALCULATED LDL IS BASED ON ROCIO-BYERS METHOD WHICHINCLUDES ADJUSTABLE TRIGLYCERIDE:VLDL CHOLESTEROL RATIO.THIS FACTOR VARIES BY MEASURED TRIGLYCERIDE AND NON-HDLCHOLESTEROL CONCENTRATIONS WITH INCREASED CALCULATED LDL SEENIN HIGHER TRIGLYCERIDE OR LOWER NON-HDL SPECIMENS. FOR MOREINFORMATION, SEE CLIENT ANNOUNCEMENT AT [email or web address] RISK RATIO LDL/HDL (test code = 2238) 1.72 RATIO <3.22 COMPREHENSIVE METABOLIC [id number] 06:17:02* Test Item Value Reference Range Interpretation Comme nts GLUCOSE (test code = 2216) 129 MG/DL 70-99 H BUN (test code = 2207) 21 MG/DL 6-20 H CREATININE (test code = 2213) 0.99 MG/DL 0.60-1.30 eGFR (2020 CKD-EPI) (test code = ) 67 ML/MIN/1.73 >60 CALC BUN/CREAT (test code = 2234) 21 RATIO 6-28 SODIUM (test code = 2230) 135 MEQ/L 133-146 POTASSIUM (test code = 2227) 4.5 MEQ/L 3.5-5.4 CHLORIDE (test code = 2214) 95 MEQ/L 95-107 CARBON DIOXIDE (test code = 2205) 29 MEQ/L 19-31 CALCIUM (test code = 2208) 11.0 MG/DL 8.5-10.5 H PROTEIN, TOTAL (test code = 2228) 7.3 G/DL 6.1-8.3 ALBUMIN (test code = 2200) 4.6 G/DL 3.5-5.2 CALC GLOBULIN (test code = 2239) 2.7 G/DL 1.9-3.7 CALC A/G RATIO (test code = 2233) 1.7 RATIO 1.0-2.6 BILIRUBIN, TOTAL (test code = 2206) <0.2 MG/DL See_Comment [Automated me ssage] The system which generated this result transmitted reference range: <=1.2. The reference range was not used to interpret this result as normal/abnormal. ALKALINE PHOSPHATASE (test code = 2203) 104 U/L 40-136 AST (test code = 2217) 14 U/L 9-40 ALT (test code = 2219) 16 U/L 5-40 CBC W/AUTO DIFF WITH [id number] 04:39:54* Test Item Value Reference Range Interpretation Comme nts WBC (test code = 1001) 10.9 K/UL 3.5-11.0 RBC (test code = 1002) 4.14 M/UL 3.80-5.40 HEMOGLOBIN (test code = 1003) 12.2 G/DL 11.5-15.5 HEMATOCRIT (test code = 1004) 35.5 % 34.0-45.0 MCV (test code = 1005) 85.7 fL 80.0-99.0 MCH (test code = 1006) 29.5 PG 25.0-33.0 MCHC (test code = 1007) 34.4 G/DL 31.0-36.0 RDW (test code = 1038) 13.5 % 11.5-15.0 NEUTROPHILS (test code = 1008) 60.2 % LYMPHOCYTES (test code = 1010) 31.1 % MONOCYTES (test code = 1011) 6.3 % EOSINOPHILS (test code = 1012) 1.4 % BASOPHILS (test code = 1013) 0.6 % IMMATURE GRANULOCYTES (test code = 1036) 0.4 % NUCLEATED RBCS (test code = 1065) 0.0 /100 WBC'S See_Comment [Automated [facility]/LBRa ge] The system which generated this result transmitted reference range: 0.0. The reference range was not used to interpret this result as normal/abnormal. PLATELET COUNT (test code = 1015) 387 K/UL 130-400 ABSOLUTE NEUTROPHILS (test code = 1066) 6.56 K/UL 1.50-7.50 ABSOLUTE LYMPHOCYTES (test code = 1067) 3.39 K/UL 1.00-4.00 ABSOLUTE MONOCYTES (test code = 1068) 0.69 K/UL 0.20-1.00 ABSOLUTE EOSINOPHILS (test code = 1040) 0.15 K/UL 0.00-0.50 ABSOLUTE BASOPHILS (test code = 1069) 0.07 K/UL 0.00-0.20 ABS IMMATURE GRANULOCYTES (test code = 1020) 0.04 K/UL 0.00-0.10 ABS NUCLEATED RBCS (test code = 79694) 0.00 K/UL 0.00-0.11 HEMOGLOBIN [id number] 00:00:00* Test Item Value Reference Range Interpretation Comme nts HEMOGLOBIN A1c (test code = 38315) 10.2 % LIPID [id number] 00:00:00* Test Item Value Reference Range Interpretation Comme nts CHOLESTEROL (test code = 2210) 191 MG/DL TRIGLYCERIDES (test code = 2232) 214 MG/DL HDL CHOLESTEROL (test code = 2220) 58 MG/DL CALC LDL CHOL (test code = 2237) 100 MG/DL RISK RATIO LDL/HDL (test cod e = 2238) 1.72 RATIO COMPREHENSIVE METABOLIC [id number] 00:00:00* Test Item Value Reference Range Interpretation Comme nts GLUCOSE (test code = 2217) 129 MG/DL BUN (test code = 2208) 21 MG/DL CREATININE (test code = 2214) 0.99 MG/DL eGFR (2020 CKD-EPI) (test co de = 41268) 67 ML/MIN/1.73 CALC BUN/CREAT (test code = 2235) 21 RATIO SODIUM (test code = 2231) 135 MEQ/L POTASSIUM (test code = 2228) 4.5 MEQ/L CHLORIDE (test code = 2215) 95 MEQ/L CARBON DIOXIDE (test code = 2206) 29 MEQ/L CALCIUM (test code = 2209) 11.0 MG/DL PROTEIN, TOTAL (test code = 2229) 7.3 G/DL ALBUMIN (test code = 2201) 4.6 G/DL CALC GLOBULIN (test code = 2240) 2.7 G/DL CALC A/G RATIO (test code = 2234) 1.7 RATIO BILIRUBIN, TOTAL (test code = 2207) <0.2 MG/DL ALKALINE PHOSPHATASE (test code = 2204) 104 U/L AST (test code = 2218) 14 U/L ALT (test code = 2219) 16 U/L CBC W/AUTO [id number] 00:00:00* Test Item Value Reference Range Interpretation Comme nts WBC (test code = 1001) 10.9 K/UL RBC (test code = 1002) 4.14 M/UL HEMOGLOBIN (test code = 1003) 12.2 G/DL HEMATOCRIT (test code = 1004) 35.5 % MCV (test code = 1005) 85.7 fL MCH (test code = 1006) 29.5 PG MCHC (test code = 1007) 34.4 G/DL RDW (test code = 1038) 13.5 % NEUTROPHILS (test code = 1008) 60.2 % LYMPHOCYTES (test code = 1010) 31.1 % MONOCYTES (test code = 1011) 6.3 % EOSINOPHILS (test code = 1012) 1.4 % BASOPHILS (test code = 1013) 0.6 % IMMATURE GRANULOCYTES (test code = 1036) 0.4 % NUCLEATED RBCS (test code = 1065) 0.0 /100WBC'S PLATELET COUNT (test code = 1015) 387 K/UL ABSOLUTE NEUTROPHILS (test c ode = 1066) 6.56 K/UL ABSOLUTE LYMPHOCYTES (test c ode = 1067) 3.39 K/UL ABSOLUTE MONOCYTES (test cod e = 1068) 0.69 K/UL ABSOLUTE EOSINOPHILS (test c ode = 1040) 0.15 K/UL ABSOLUTE BASOPHILS (test cod e = 1069) 0.07 K/UL ABS IMMATURE GRANULOCYTES (t est code = 1020) 0.04 K/UL ABS NUCLEATED RBCS (test cod e = 11234) 0.00 K/UL CK, [id number] 00:00:00* Test Item Value Reference Range Interpretation Comme nts CK, TOTAL (test code = 2013) 47 U/L HEMOGLOBIN [id number] 00:00:00* Test Item Value Reference Range Interpretation Comme nts HEMOGLOBIN A1c (test code = 17005) 10.2 % LIPID [id number] 00:00:00* Test Item Value Reference Range Interpretation Comme nts CHOLESTEROL (test code = 2210) 191 MG/DL TRIGLYCERIDES (test code = 2232) 214 MG/DL HDL CHOLESTEROL (test code = 2220) 58 MG/DL CALC LDL CHOL (test code = 2237) 100 MG/DL RISK RATIO LDL/HDL (test cod e = 2238) 1.72 RATIO COMPREHENSIVE METABOLIC [id number] 00:00:00* Test Item Value Reference Range Interpretation Comme nts GLUCOSE (test code = 2217) 129 MG/DL BUN (test code = 2208) 21 MG/DL CREATININE (test code = 2214) 0.99 MG/DL eGFR (2020 CKD-EPI) (test co de = 06223) 67 ML/MIN/1.73 CALC BUN/CREAT (test code = 2235) 21 RATIO SODIUM (test code = 2231) 135 MEQ/L POTASSIUM (test code = 2228) 4.5 MEQ/L CHLORIDE (test code = 2215) 95 MEQ/L CARBON DIOXIDE (test code = 2206) 29 MEQ/L CALCIUM (test code = 2209) 11.0 MG/DL PROTEIN, TOTAL (test code = 2229) 7.3 G/DL ALBUMIN (test code = 2201) 4.6 G/DL CALC GLOBULIN (test code = 2240) 2.7 G/DL CALC A/G RATIO (test code = 2234) 1.7 RATIO BILIRUBIN, TOTAL (test code = 2207) <0.2 MG/DL ALKALINE PHOSPHATASE (test code = 2204) 104 U/L AST (test code = 2218) 14 U/L ALT (test code = 2219) 16 U/L CBC W/AUTO [id number] 00:00:00* Test Item Value Reference Range Interpretation Comme nts WBC (test code = 1001) 10.9 K/UL RBC (test code = 1002) 4.14 M/UL HEMOGLOBIN (test code = 1003) 12.2 G/DL HEMATOCRIT (test code = 1004) 35.5 % MCV (test code = 1005) 85.7 fL MCH (test code = 1006) 29.5 PG MCHC (test code = 1007) 34.4 G/DL RDW (test code = 1038) 13.5 % NEUTROPHILS (test code = 1008) 60.2 % LYMPHOCYTES (test code = 1010) 31.1 % MONOCYTES (test code = 1011) 6.3 % EOSINOPHILS (test code = 1012) 1.4 % BASOPHILS (test code = 1013) 0.6 % IMMATURE GRANULOCYTES (test code = 1036) 0.4 % NUCLEATED RBCS (test code = 1065) 0.0 /100WBC'S PLATELET COUNT (test code = 1015) 387 K/UL ABSOLUTE NEUTROPHILS (test c ode = 1066) 6.56 K/UL ABSOLUTE LYMPHOCYTES (test c ode = 1067) 3.39 K/UL ABSOLUTE MONOCYTES (test cod e = 1068) 0.69 K/UL ABSOLUTE EOSINOPHILS (test c ode = 1040) 0.15 K/UL ABSOLUTE BASOPHILS (test cod e = 1069) 0.07 K/UL ABS IMMATURE GRANULOCYTES (t est code = 1020) 0.04 K/UL ABS NUCLEATED RBCS (test cod e = 99374) 0.00 K/UL CK, [id number] 00:00:00* Test Item Value Reference Range Interpretation Comme nts CK, TOTAL (test code = 2013) 47 U/L RHEUMATOID FACTOR, [id number] 05:57:08* Test Item Value Reference Range Interpretation Comme nts RHEUMATOID FACTOR, QUANT (test code = 3502) <10 IU/ML <14 UNLESS OTHERWISE INDICATED, ALL TESTING PERFORMED [facility] [address] [place] [address] BACTERIOLOGIST FISHERY: FAITH ALMANZA M.D. IA NUMBER [id number] [facility]. [id number] COMPREHENSIVE METABOLIC [id number] 04:55:21* Test Item Value Reference Range Interpretation Comme nts GLUCOSE (test code = 7) 145 MG/DL 70-99 H BUN (test code = 2207) 23 MG/DL 6-20 H CREATININE (test code = 221) 0.89 MG/DL 0.60-1.30 eGFR (2020 CKD-EPI) (test code = 58039) 77 ML/MIN/1.73 >60 CALC BUN/CREAT (test code = 5) 26 RATIO 6-28 SODIUM (test code = 223) 139 MEQ/L 133-146 POTASSIUM (test code = 2228) 5.0 MEQ/L 3.5-5.4 CHLORIDE (test code = 5) 103 MEQ/L 95-107 CARBON DIOXIDE (test code = 2206) 23 MEQ/L 19-31 CALCIUM (test code = 2209) 10.0 MG/DL 8.5-10.5 PROTEIN, TOTAL (test code = 222) 7.0 G/DL 6.1-8.3 ALBUMIN (test code = 2201) 4.3 G/DL 3.5-5.2 CALC GLOBULIN (test code = 2240) 2.7 G/DL 1.9-3.7 CALC A/G RATIO (test code = 223) 1.6 RATIO 1.0-2.6 BILIRUBIN, TOTAL (test code = 2207) <0.2 MG/DL See_Comment [Automated me ssage] The system which generated this result transmitted reference range: <=1.2. The reference range was not used to interpret this result as normal/abnormal. ALKALINE PHOSPHATASE (test code = 4) 112 U/L 40-133 AST (test code = 2218) 16 U/L 9-40 ALT (test code = 2219) 28 U/L 5-40 LIPID [id number] 04:55:21* Test Item Value Reference Range Interpretation Comme nts CHOLESTEROL (test code = 2210) 193 MG/DL <200 TRIGLYCERIDES (test code = 2232) 165 MG/DL <150 H HDL CHOLESTEROL (test code = 2220) 53 MG/DL >39 CALC LDL CHOL (test code = 2237) 112 MG/DL <100 H NOTE: CALCULATED LDL IS BASED ON ROCIO-BYERS METHOD WHICHINCLUDES ADJUSTABLE TRIGLYCERIDE:VLDL CHOLESTEROL RATIO.THIS FACTOR VARIES BY MEASURED TRIGLYCERIDE AND NON-HDLCHOLESTEROL CONCENTRATIONS WITH INCREASED CALCULATED LDL SEENIN HIGHER TRIGLYCERIDE OR LOWER NON-HDL SPECIMENS. FOR MOREINFORMATION, SEE CLIENT ANNOUNCEMENT AT [email or web address] RISK RATIO LDL/HDL (test code = 2238) 2.11 RATIO <3.22 HEMOGLOBIN [id number] 04:20:27* Test Item Value Reference Range Interpretation Comme nts HEMOGLOBIN A1c (test code = 74108) 8.4 % 4.2-5.6 H [employer] GUIDELINES FOR HGB A1C: PREDIABETES/INCREASED RISK . . . . . . . 5.7-6.4% DIAGNOSIS OF DIABETES . . . . . . . . . >=6.5% WITH CONFIRMATION OR APPROPRIATE SYMPTOMS NOTE: ASSAY MAY BE AFFECTED BY HEMOGLOBINOPATHIES (SICKLE CELL ANEMIA, S-C DISEASE, OTHERS) OR ARTIFICIALLY LOWERED BY DECREASED RED CELL SURVIVAL (HEMOLYTIC ANEMIAS, BLOOD LOSS, ETC.). CONSIDER ALTERNATE TESTING OR LABORATORY CONSULTATION. HEMOGLOBIN [id number] 00:00:00* Test Item Value Reference Range Interpretation Comme nts HEMOGLOBIN A1c (test code = 03935) 8.4 % COMPREHENSIVE METABOLIC [id number] 00:00:00* Test Item Value Reference Range Interpretation Comme nts GLUCOSE (test code = 2217) 145 MG/DL BUN (test code = 2208) 23 MG/DL CREATININE (test code = 2214) 0.89 MG/DL eGFR (2020 CKD-EPI) (test co de = 77743) 77 ML/MIN/1.73 CALC BUN/CREAT (test code = 2235) 26 RATIO SODIUM (test code = 2231) 139 MEQ/L POTASSIUM (test code = 2228) 5.0 MEQ/L CHLORIDE (test code = 2215) 103 MEQ/L CARBON DIOXIDE (test code = 2206) 23 MEQ/L CALCIUM (test code = 2209) 10.0 MG/DL PROTEIN, TOTAL (test code = 2229) 7.0 G/DL ALBUMIN (test code = 2201) 4.3 G/DL CALC GLOBULIN (test code = 2240) 2.7 G/DL CALC A/G RATIO (test code = 2234) 1.6 RATIO BILIRUBIN, TOTAL (test code = 2207) <0.2 MG/DL ALKALINE PHOSPHATASE (test code = 2204) 112 U/L AST (test code = 2218) 16 U/L ALT (test code = 2219) 28 U/L LIPID [id number] 00:00:00* Test Item Value Reference Range Interpretation Comme nts CHOLESTEROL (test code = 2210) 193 MG/DL TRIGLYCERIDES (test code = 2232) 165 MG/DL HDL CHOLESTEROL (test code = 2220) 53 MG/DL CALC LDL CHOL (test code = 2237) 112 MG/DL RISK RATIO LDL/HDL (test cod e = 2238) 2.11 RATIO RHEUMATOID FACTOR, [id number] 00:00:00* Test Item Value Reference Range Interpretation Comme nts RHEUMATOID FACTOR, QUANT (te st code = 3502) <10 IU/ML HEMOGLOBIN [id number] 00:00:00* Test Item Value Reference Range Interpretation Comme nts HEMOGLOBIN A1c (test code = 39711) 8.4 % COMPREHENSIVE METABOLIC [id number] 00:00:00* Test Item Value Reference Range Interpretation Comme nts GLUCOSE (test code = 2217) 145 MG/DL BUN (test code = 2208) 23 MG/DL CREATININE (test code = 2214) 0.89 MG/DL eGFR (2020 CKD-EPI) (test co de = 06110) 77 ML/MIN/1.73 CALC BUN/CREAT (test code = 2235) 26 RATIO SODIUM (test code = 2231) 139 MEQ/L POTASSIUM (test code = 2228) 5.0 MEQ/L CHLORIDE (test code = 2215) 103 MEQ/L CARBON DIOXIDE (test code = 2206) 23 MEQ/L CALCIUM (test code = 2209) 10.0 MG/DL PROTEIN, TOTAL (test code = 2229) 7.0 G/DL ALBUMIN (test code = 2201) 4.3 G/DL CALC GLOBULIN (test code = 2240) 2.7 G/DL CALC A/G RATIO (test code = 2234) 1.6 RATIO BILIRUBIN, TOTAL (test code = 2207) <0.2 MG/DL ALKALINE PHOSPHATASE (test code = 2204) 112 U/L AST (test code = 2218) 16 U/L ALT (test code = 2219) 28 U/L LIPID [id number] 00:00:00* Test Item Value Reference Range Interpretation Comme nts CHOLESTEROL (test code = 2210) 193 MG/DL TRIGLYCERIDES (test code = 2232) 165 MG/DL HDL CHOLESTEROL (test code = 2220) 53 MG/DL CALC LDL CHOL (test code = 2237) 112 MG/DL RISK RATIO LDL/HDL (test cod e = 2238) 2.11 RATIO RHEUMATOID FACTOR, [id number] 00:00:00* Test Item Value Reference Range Interpretation Comme nts RHEUMATOID FACTOR, QUANT (te st code = 3502) <10 IU/ML HEMOGLOBIN [id number] 00:00:00* Test Item Value Reference Range Interpretation Comme nts HEMOGLOBIN A1c (test code = 10899) 8.8 % HEMOGLOBIN [id number] 00:00:00* Test Item Value Reference Range Interpretation Comme nts HEMOGLOBIN A1c (test code = 31333) 8.8 % RHEUMATOID FACTOR, [id number] 00:00:00* Test Item Value Reference Range Interpretation Comme nts RHEUMATOID FACTOR, QUANT (te st code = 3502) <10 IU/ML C-REACTIVE [id number] 00:00:00* Test Item Value Reference Range Interpretation Comme nts C-REACTIVE PROTEIN (test cod e = 3513) 0.5 MG/DL MICHAEL (ANTI-NUCLEAR AB) WITH REFLEX [id number] 00:00:00* Test Item Value Reference Range Interpretation Comme nts ANTI-NUCLEAR ANTIBODIES (nasreen t code = 3506) NEGATIVE SEDIMENTATION [id number] 00:00:00* Test Item Value Reference Range Interpretation Comme nts SEDIMENTATION RATE (test cod e = 1017) 28 MM/HOUR URIC [id number] 00:00:00* Test Item Value Reference Range Interpretation Comme nts URIC ACID (test code = 2233) 5.2 MG/DL VITAMIN D, 25 [id number] 00:00:00* Test Item Value Reference Range Interpretation Comme nts VITAMIN D, 25 OH (test code = 4958) 44 NG/ML RHEUMATOID FACTOR, [id number] 00:00:00* Test Item Value Reference Range Interpretation Comme nts RHEUMATOID FACTOR, QUANT (te st code = 3502) <10 IU/ML C-REACTIVE [id number] 00:00:00* Test Item Value Reference Range Interpretation Comme nts C-REACTIVE PROTEIN (test cod e = 3513) 0.5 MG/DL MICHAEL (ANTI-NUCLEAR AB) WITH REFLEX [id number] 00:00:00* Test Item Value Reference Range Interpretation Comme nts ANTI-NUCLEAR ANTIBODIES (nasreen t code = 3506) NEGATIVE SEDIMENTATION [id number] 00:00:00* Test Item Value Reference Range Interpretation Comme nts SEDIMENTATION RATE (test cod e = 1017) 28 MM/HOUR URIC [id number] 00:00:00* Test Item Value Reference Range Interpretation Comme nts URIC ACID (test code = 2233) 5.2 MG/DL VITAMIN D, 25 [id number] 00:00:00* Test Item Value Reference Range Interpretation Comme nts VITAMIN D, 25 OH (test code = 4958) 44 NG/ML HEMOGLOBIN [id number] 00:00:00* Test Item Value Reference Range Interpretation Comme nts HEMOGLOBIN A1c (test code = 49806) 9.0 % LIPID [id number] 00:00:00* Test Item Value Reference Range Interpretation Comme nts CHOLESTEROL (test code = 2210) 161 MG/DL TRIGLYCERIDES (test code = 2232) 117 MG/DL HDL CHOLESTEROL (test code = 2220) 57 MG/DL CALC LDL CHOL (test code = 2237) 83 MG/DL RISK RATIO LDL/HDL (test cod e = 2238) 1.46 RATIO COMPREHENSIVE METABOLIC [id number] 00:00:00* Test Item Value Reference Range Interpretation Comme nts GLUCOSE (test code = 2217) 306 MG/DL BUN (test code = 2208) 30 MG/DL CREATININE (test code = 2214) 1.07 MG/DL eGFR AMER. (test cod e = 43155) 68 ML/MIN/1.73 eGFR NON- AMER. (test code = 56407) 58 ML/MIN/1.73 CALC BUN/CREAT (test code = 2235) 28 RATIO SODIUM (test code = 223) 136 MEQ/L POTASSIUM (test code = 2228) 5.1 MEQ/L CHLORIDE (test code = 2215) 100 MEQ/L CARBON DIOXIDE (test code = 2206) 23 MEQ/L CALCIUM (test code = 2209) 9.4 MG/DL PROTEIN, TOTAL (test code = 2229) 6.8 G/DL ALBUMIN (test code = 2201) 4.0 G/DL CALC GLOBULIN (test code = 2240) 2.8 G/DL CALC A/G RATIO (test code = 2234) 1.4 RATIO BILIRUBIN, TOTAL (test code = 2207) <0.2 MG/DL ALKALINE PHOSPHATASE (test code = 2204) 68 U/L AST (test code = 221) 12 U/L ALT (test code = 2219) 12 U/L HEMOGLOBIN [id number] 00:00:00* Test Item Value Reference Range Interpretation Comme nts HEMOGLOBIN A1c (test code = 60764) 9.0 % LIPID [id number] 00:00:00* Test Item Value Reference Range Interpretation Comme nts CHOLESTEROL (test code = 2210) 161 MG/DL TRIGLYCERIDES (test code = 2232) 117 MG/DL HDL CHOLESTEROL (test code = 2220) 57 MG/DL CALC LDL CHOL (test code = 2237) 83 MG/DL RISK RATIO LDL/HDL (test cod e = 2238) 1.46 RATIO COMPREHENSIVE METABOLIC [id number] 00:00:00* Test Item Value Reference Range Interpretation Comme nts GLUCOSE (test code = 7) 306 MG/DL BUN (test code = 8) 30 MG/DL CREATININE (test code = 2214) 1.07 MG/DL eGFR AMER. (test cod e = 52798) 68 ML/MIN/1.73 eGFR NON- AMER. (test code = 96190) 58 ML/MIN/1.73 CALC BUN/CREAT (test code = 2235) 28 RATIO SODIUM (test code = 2231) 136 MEQ/L POTASSIUM (test code = 2228) 5.1 MEQ/L CHLORIDE (test code = 2215) 100 MEQ/L CARBON DIOXIDE (test code = 2206) 23 MEQ/L CALCIUM (test code = 2209) 9.4 MG/DL PROTEIN, TOTAL (test code = 2229) 6.8 G/DL ALBUMIN (test code = 2201) 4.0 G/DL CALC GLOBULIN (test code = 2240) 2.8 G/DL CALC A/G RATIO (test code = 2234) 1.4 RATIO BILIRUBIN, TOTAL (test code = 2207) <0.2 MG/DL ALKALINE PHOSPHATASE (test code = 2204) 68 U/L AST (test code = 2218) 12 U/L ALT (test code = 2219) 12 U/L HEMOGLOBIN [id number] 00:00:00* Test Item Value Reference Range Interpretation Comme nts HEMOGLOBIN A1c (test code = 91733) 12.6 % HEMOGLOBIN [id number] 00:00:00* Test Item Value Reference Range Interpretation Comme nts HEMOGLOBIN A1c (test code = 30434) 12.6 % HEMOGLOBIN [id number] 00:00:00* Test Item Value Reference Range Interpretation Comme nts HEMOGLOBIN A1c (test code = 84460) 10.0 % LIPID [id number] 00:00:00* Test Item Value Reference Range Interpretation Comme nts CHOLESTEROL (test code = 2210) 180 MG/DL TRIGLYCERIDES (test code = 2232) 216 MG/DL HDL CHOLESTEROL (test code = 2220) 51 MG/DL CALC LDL CHOL (test code = 2237) 98 MG/DL RISK RATIO LDL/HDL (test cod e = 2238) 1.92 RATIO COMPREHENSIVE METABOLIC [id number] 00:00:00* Test Item Value Reference Range Interpretation Comme nts GLUCOSE (test code = 2217) 269 MG/DL BUN (test code = 8) 30 MG/DL CREATININE (test code = 2214) 0.73 MG/DL eGFR AMER. (test cod e = 11534) 108 ML/MIN/1.73 eGFR NON- AMER. (test code = 94235) 93 ML/MIN/1.73 CALC BUN/CREAT (test code = 2235) 41 RATIO SODIUM (test code = 2231) 136 MEQ/L POTASSIUM (test code = 2228) 5.1 MEQ/L CHLORIDE (test code = 2215) 101 MEQ/L CARBON DIOXIDE (test code = 2206) 27 MEQ/L CALCIUM (test code = 2209) 9.7 MG/DL PROTEIN, TOTAL (test code = 222) 7.1 G/DL ALBUMIN (test code = 2201) 4.0 G/DL CALC GLOBULIN (test code = 2240) 3.1 G/DL CALC A/G RATIO (test code = 2234) 1.3 RATIO BILIRUBIN, TOTAL (test code = 2207) <0.2 MG/DL ALKALINE PHOSPHATASE (test code = 2204) 93 U/L AST (test code = 2218) 13 U/L ALT (test code = 2219) 15 U/L HEMOGLOBIN [id number] 00:00:00* Test Item Value Reference Range Interpretation Comme nts HEMOGLOBIN A1c (test code = 79668) 10.0 % LIPID [id number] 00:00:00* Test Item Value Reference Range Interpretation Comme nts CHOLESTEROL (test code = 2210) 180 MG/DL TRIGLYCERIDES (test code = 2232) 216 MG/DL HDL CHOLESTEROL (test code = 2220) 51 MG/DL CALC LDL CHOL (test code = 2237) 98 MG/DL RISK RATIO LDL/HDL (test cod e = 223) 1.92 RATIO COMPREHENSIVE METABOLIC [id number] 00:00:00* Test Item Value Reference Range Interpretation Comme nts GLUCOSE (test code = 2217) 269 MG/DL BUN (test code = 2207) 30 MG/DL CREATININE (test code = 2214) 0.73 MG/DL eGFR AMER. (test cod e = 94947) 108 ML/MIN/1.73 eGFR NON- AMER. (test code = 56991) 93 ML/MIN/1.73 CALC BUN/CREAT (test code = 2235) 41 RATIO SODIUM (test code = 2231) 136 MEQ/L POTASSIUM (test code = 2228) 5.1 MEQ/L CHLORIDE (test code = 2215) 101 MEQ/L CARBON DIOXIDE (test code = 2206) 27 MEQ/L CALCIUM (test code = 2209) 9.7 MG/DL PROTEIN, TOTAL (test code = 2229) 7.1 G/DL ALBUMIN (test code = 2201) 4.0 G/DL CALC GLOBULIN (test code = 2240) 3.1 G/DL CALC A/G RATIO (test code = 2234) 1.3 RATIO BILIRUBIN, TOTAL (test code = 2207) <0.2 MG/DL ALKALINE PHOSPHATASE (test code = 2204) 93 U/L AST (test code = 2218) 13 U/L ALT (test code = 2219) 15 U/L HEMOGLOBIN [id number] 00:00:00* Test Item Value Reference Range Interpretation Comme nts HEMOGLOBIN A1c (test code = 47574) 8.0 % COMPREHENSIVE METABOLIC [id number] 00:00:00* Test Item Value Reference Range Interpretation Comme nts GLUCOSE (test code = 2217) 123 MG/DL BUN (test code = 2208) 20 MG/DL CREATININE (test code = 2214) 0.71 MG/DL eGFR AMER. (test cod e = 89530) 112 ML/MIN/1.73 eGFR NON- AMER. (test code = 85820) 97 ML/MIN/1.73 CALC BUN/CREAT (test code = 2235) 28 RATIO SODIUM (test code = 2231) 139 MEQ/L POTASSIUM (test code = 2228) 5.0 MEQ/L CHLORIDE (test code = 2215) 102 MEQ/L CARBON DIOXIDE (test code = 2206) 25 MEQ/L CALCIUM (test code = 2209) 10.4 MG/DL PROTEIN, TOTAL (test code = 2229) 7.4 G/DL ALBUMIN (test code = 2201) 4.4 G/DL CALC GLOBULIN (test code = 2240) 3.0 G/DL CALC A/G RATIO (test code = 2234) 1.5 RATIO BILIRUBIN, TOTAL (test code = 2207) <0.2 MG/DL ALKALINE PHOSPHATASE (test code = 2204) 100 U/L AST (test code = 2218) 49 U/L ALT (test code = 2219) 55 U/L RHEUMATOID FACTOR, [id number] 00:00:00* Test Item Value Reference Range Interpretation Comme nts RHEUMATOID FACTOR, QUANT (te st code = 3502) 10 IU/ML HEMOGLOBIN [id number] 00:00:00* Test Item Value Reference Range Interpretation Comme nts HEMOGLOBIN A1c (test code = 49284) 8.0 % COMPREHENSIVE METABOLIC [id number] 00:00:00* Test Item Value Reference Range Interpretation Comme nts GLUCOSE (test code = 2217) 123 MG/DL BUN (test code = 2208) 20 MG/DL CREATININE (test code = 2214) 0.71 MG/DL eGFR AMER. (test cod e = 45055) 112 ML/MIN/1.73 eGFR NON- AMER. (test code = 60817) 97 ML/MIN/1.73 CALC BUN/CREAT (test code = 2235) 28 RATIO SODIUM (test code = 2231) 139 MEQ/L POTASSIUM (test code = 2228) 5.0 MEQ/L CHLORIDE (test code = 2215) 102 MEQ/L CARBON DIOXIDE (test code = 2206) 25 MEQ/L CALCIUM (test code = 2209) 10.4 MG/DL PROTEIN, TOTAL (test code = 2229) 7.4 G/DL ALBUMIN (test code = 2201) 4.4 G/DL CALC GLOBULIN (test code = 2240) 3.0 G/DL CALC A/G RATIO (test code = 2234) 1.5 RATIO BILIRUBIN, TOTAL (test code = 2207) <0.2 MG/DL ALKALINE PHOSPHATASE (test code = 2204) 100 U/L AST (test code = 2218) 49 U/L ALT (test code = 2219) 55 U/L RHEUMATOID FACTOR, [id number] 00:00:00* Test Item Value Reference Range Interpretation Comme nts RHEUMATOID FACTOR, QUANT (te st code = 3502) 10 IU/ML COMPREHENSIVE METABOLIC [id number] 00:00:00* Test Item Value Reference Range Interpretation Comme nts GLUCOSE (test code = 2217) 324 MG/DL BUN (test code = 2208) 21 MG/DL CREATININE (test code = 2214) 0.65 MG/DL eGFR AMER. (test cod e = 49764) 117 ML/MIN/1.73 eGFR NON- AMER. (test code = 51313) 101 ML/MIN/1.73 CALC BUN/CREAT (test code = 2235) 32 RATIO SODIUM (test code = 2231) 136 MEQ/L POTASSIUM (test code = 2228) 4.6 MEQ/L CHLORIDE (test code = 2215) 93 MEQ/L CARBON DIOXIDE (test code = 2206) 26 MEQ/L CALCIUM (test code = 2209) 9.8 MG/DL PROTEIN, TOTAL (test code = 2229) 7.4 G/DL ALBUMIN (test code = 2201) 4.5 G/DL CALC GLOBULIN (test code = 2240) 2.9 G/DL CALC A/G RATIO (test code = 2234) 1.6 RATIO BILIRUBIN, TOTAL (test code = 2207) 0.2 MG/DL ALKALINE PHOSPHATASE (test code = 2204) 115 U/L AST (test code = 2218) 12 U/L ALT (test code = 2219) 22 U/L LIPID [id number] 00:00:00* Test Item Value Reference Range Interpretation Comme nts CHOLESTEROL (test code = 2210) 338 MG/DL TRIGLYCERIDES (test code = 2232) 283 MG/DL HDL CHOLESTEROL (test code = 2220) 65 MG/DL CALC LDL CHOL (test code = 2237) 222 MG/DL RISK RATIO LDL/HDL (test cod e = 2238) 3.42 RATIO CBC W/AUTO [id number] 00:00:00* Test Item Value Reference Range Interpretation Comme nts WBC (test code = 1001) 11.5 K/UL RBC (test code = 1002) 4.73 M/UL HEMOGLOBIN (test code = 1003) 14.4 G/DL HEMATOCRIT (test code = 1004) 42.6 % MCV (test code = 1005) 90.1 fL MCH (test code = 1006) 30.4 PG MCHC (test code = 1007) 33.8 G/DL RDW (test code = 1038) 12.7 % NEUTROPHILS (test code = 1008) 58.5 % LYMPHOCYTES (test code = 1010) 33.8 % MONOCYTES (test code = 1011) 6.2 % EOSINOPHILS (test code = 1012) 1.1 % BASOPHILS (test code = 1013) 0.4 % PLATELET COUNT (test code = 1015) 359 K/UL HEMOGLOBIN [id number] 00:00:00* Test Item Value Reference Range Interpretation Comme nts HEMOGLOBIN A1c (test code = 81753) 9.3 % COMPREHENSIVE METABOLIC [id number] 00:00:00* Test Item Value Reference Range Interpretation Comme nts GLUCOSE (test code = 2217) 324 MG/DL BUN (test code = 2208) 21 MG/DL CREATININE (test code = 2214) 0.65 MG/DL eGFR AMER. (test cod e = 65785) 117 ML/MIN/1.73 eGFR NON- AMER. (test code = 18029) 101 ML/MIN/1.73 CALC BUN/CREAT (test code = 2235) 32 RATIO SODIUM (test code = 2231) 136 MEQ/L POTASSIUM (test code = 2228) 4.6 MEQ/L CHLORIDE (test code = 2215) 93 MEQ/L CARBON DIOXIDE (test code = 2206) 26 MEQ/L CALCIUM (test code = 2209) 9.8 MG/DL PROTEIN, TOTAL (test code = 2229) 7.4 G/DL ALBUMIN (test code = 2201) 4.5 G/DL CALC GLOBULIN (test code = 2240) 2.9 G/DL CALC A/G RATIO (test code = 2234) 1.6 RATIO BILIRUBIN, TOTAL (test code = 2207) 0.2 MG/DL ALKALINE PHOSPHATASE (test code = 2204) 115 U/L AST (test code = 2218) 12 U/L ALT (test code = 2219) 22 U/L LIPID [id number] 00:00:00* Test Item Value Reference Range Interpretation Comme nts CHOLESTEROL (test code = 2210) 338 MG/DL TRIGLYCERIDES (test code = 2232) 283 MG/DL HDL CHOLESTEROL (test code = 2220) 65 MG/DL CALC LDL CHOL (test code = 2237) 222 MG/DL RISK RATIO LDL/HDL (test cod e = 2238) 3.42 RATIO CBC W/AUTO [id number] 00:00:00* Test Item Value Reference Range Interpretation Comme nts WBC (test code = 1001) 11.5 K/UL RBC (test code = 1002) 4.73 M/UL HEMOGLOBIN (test code = 1003) 14.4 G/DL HEMATOCRIT (test code = 1004) 42.6 % MCV (test code = 1005) 90.1 fL MCH (test code = 1006) 30.4 PG MCHC (test code = 1007) 33.8 G/DL RDW (test code = 1038) 12.7 % NEUTROPHILS (test code = 1008) 58.5 % LYMPHOCYTES (test code = 1010) 33.8 % MONOCYTES (test code = 1011) 6.2 % EOSINOPHILS (test code = 1012) 1.1 % BASOPHILS (test code = 1013) 0.4 % PLATELET COUNT (test code = 1015) 359 K/UL HEMOGLOBIN [id number] 00:00:00* Test Item Value Reference Range Interpretation Comme nts HEMOGLOBIN A1c (test code = 73448) 9.3 % COMPREHENSIVE METABOLIC [id number] 00:00:00* Test Item Value Reference Range Interpretation Comme nts GLUCOSE (test code = 2217) 167 MG/DL BUN (test code = 2208) 21 MG/DL CREATININE (test code = 2214) 0.67 MG/DL eGFR AMER. (test cod e = 89073) 116 ML/MIN/1.73 eGFR NON- AMER. (test code = 13172) 100 ML/MIN/1.73 CALC BUN/CREAT (test code = 2235) 31 RATIO SODIUM (test code = 2231) 137 MEQ/L POTASSIUM (test code = 2228) 4.6 MEQ/L CHLORIDE (test code = 2215) 98 MEQ/L CARBON DIOXIDE (test code = 2206) 28 MEQ/L CALCIUM (test code = 2209) 9.9 MG/DL PROTEIN, TOTAL (test code = 2229) 7.2 G/DL ALBUMIN (test code = 2201) 4.4 G/DL CALC GLOBULIN (test code = 2240) 2.8 G/DL CALC A/G RATIO (test code = 2234) 1.6 RATIO BILIRUBIN, TOTAL (test code = 2207) <0.2 MG/DL ALKALINE PHOSPHATASE (test code = 2204) 70 U/L AST (test code = 2218) 11 U/L ALT (test code = 2219) 17 U/L LIPID [id number] 00:00:00* Test Item Value Reference Range Interpretation Comme nts CHOLESTEROL (test code = 2210) 169 MG/DL TRIGLYCERIDES (test code = 2232) 248 MG/DL HDL CHOLESTEROL (test code = 2220) 44 MG/DL CALC LDL CHOL (test code = 2237) 75 MG/DL RISK RATIO LDL/HDL (test cod e = 2238) 1.71 RATIO HEMOGLOBIN [id number] 00:00:00* Test Item Value Reference Range Interpretation Comme nts HEMOGLOBIN A1c (test code = 41365) 8.6 % COMPREHENSIVE METABOLIC [id number] 00:00:00* Test Item Value Reference Range Interpretation Comme nts GLUCOSE (test code = 2217) 167 MG/DL BUN (test code = 2208) 21 MG/DL CREATININE (test code = 2214) 0.67 MG/DL eGFR AMER. (test cod e = ) 116 ML/MIN/1.73 eGFR NON- AMER. (test code = 78259) 100 ML/MIN/1.73 CALC BUN/CREAT (test code = 2235) 31 RATIO SODIUM (test code = 2231) 137 MEQ/L POTASSIUM (test code = 2228) 4.6 MEQ/L CHLORIDE (test code = 2215) 98 MEQ/L CARBON DIOXIDE (test code = 2206) 28 MEQ/L CALCIUM (test code = 2209) 9.9 MG/DL PROTEIN, TOTAL (test code = 222) 7.2 G/DL ALBUMIN (test code = 2201) 4.4 G/DL CALC GLOBULIN (test code = 2240) 2.8 G/DL CALC A/G RATIO (test code = 2234) 1.6 RATIO BILIRUBIN, TOTAL (test code = 2207) <0.2 MG/DL ALKALINE PHOSPHATASE (test code = 2204) 70 U/L AST (test code = 2218) 11 U/L ALT (test code = 2219) 17 U/L LIPID [id number] 00:00:00* Test Item Value Reference Range Interpretation Comme nts CHOLESTEROL (test code = 2210) 169 MG/DL TRIGLYCERIDES (test code = 2232) 248 MG/DL HDL CHOLESTEROL (test code = 2220) 44 MG/DL CALC LDL CHOL (test code = 2237) 75 MG/DL RISK RATIO LDL/HDL (test cod e = 2237) 1.71 RATIO HEMOGLOBIN [id number] 00:00:00* Test Item Value Reference Range Interpretation Comme [facility] HEMOGLOBIN A1c (test code = 94218) 8.6 % VITAMIN D, 25 [id number] 00:00:00* Test Item Value Reference Range Interpretation Comme [facility] VITAMIN D, 25 OH (test code = 4958) 30 NG/ML VITAMIN D, 25 [id number] 00:00:00* Test Item Value Reference Range Interpretation Comme [facility] VITAMIN D, 25 OH (test code = 4958) 30 NG/ML HEMOGLOBIN [id number] 00:00:00* Test Item Value Reference Range Interpretation Comme [facility] HEMOGLOBIN A1c (test code = 13868) 10.7 % HEMOGLOBIN [id number] 00:00:00* Test Item Value Reference Range Interpretation Comme nts HEMOGLOBIN A1c (test code = 04723) 10.7 % COMPREHENSIVE METABOLIC [id number] 00:00:00* Test Item Value Reference Range Interpretation Comme nts GLUCOSE (test code = 2217) 374 MG/DL BUN (test code = 2208) 14 MG/DL CREATININE (test code = 2214) 0.66 MG/DL eGFR AMER. (test cod e = 88990) 118 ML/MIN/1.73 eGFR NON- AMER. (test code = 64874) 102 ML/MIN/1.73 CALC BUN/CREAT (test code = 2235) 21 RATIO SODIUM (test code = 2231) 137 MEQ/L POTASSIUM (test code = 2228) 4.6 MEQ/L CHLORIDE (test code = 2215) 97 MEQ/L CARBON DIOXIDE (test code = 2206) 29 MEQ/L CALCIUM (test code = 2209) 10.2 MG/DL PROTEIN, TOTAL (test code = 2229) 7.9 G/DL ALBUMIN (test code = 2201) 4.6 G/DL CALC GLOBULIN (test code = 2240) 3.3 G/DL CALC A/G RATIO (test code = 2234) 1.4 RATIO BILIRUBIN, TOTAL (test code = 2207) 0.2 MG/DL ALKALINE PHOSPHATASE (test code = 2204) 135 U/L AST (test code = 2218) 12 U/L ALT (test code = 2219) 17 U/L LIPID [id number] 00:00:00* Test Item Value Reference Range Interpretation Comme nts CHOLESTEROL (test code = 2210) 229 MG/DL TRIGLYCERIDES (test code = 2232) 244 MG/DL HDL CHOLESTEROL (test code = 2220) 61 MG/DL CALC LDL CHOL (test code = 2237) 119 MG/DL RISK RATIO LDL/HDL (test cod e = 2238) 1.95 RATIO CBC W/AUTO [id number] 00:00:00* Test Item Value Reference Range Interpretation Comme nts WBC (test code = 1001) 12.2 K/UL RBC (test code = 1002) 5.49 M/UL HEMOGLOBIN (test code = 1003) 16.3 G/DL HEMATOCRIT (test code = 1004) 48.5 % MCV (test code = 1005) 88.3 fL MCH (test code = 1006) 29.7 PG MCHC (test code = 1007) 33.6 G/DL RDW (test code = 1038) 12.2 % NEUTROPHILS (test code = 1008) 64.1 % LYMPHOCYTES (test code = 1010) 29.0 % MONOCYTES (test code = 1011) 5.3 % EOSINOPHILS (test code = 1012) 1.0 % BASOPHILS (test code = 1013) 0.6 % PLATELET COUNT (test code = 1015) 341 K/UL HEMOGLOBIN [id number] 00:00:00* Test Item Value Reference Range Interpretation Comme nts HEMOGLOBIN A1c (test code = 34579) 13.5 % MICROALBUMIN/CREATININE, RANDOM AND [id number] 00:00:00* Test Item Value Reference Range Interpretation Comme nts CREATININE, URINE, CONC. (te st code = 2072) 30.4 MG/DL ALBUMIN, URINE, RANDOM (test code = 69378) 0.6 MG/DL CALC ALBUMIN/CREAT, RND (nasreen t code = 76837) 20 MG/G COMPREHENSIVE METABOLIC [id number] 00:00:00* Test Item Value Reference Range Interpretation Comme nts GLUCOSE (test code = 2217) 374 MG/DL BUN (test code = 2208) 14 MG/DL CREATININE (test code = 2214) 0.66 MG/DL eGFR AMER. (test cod e = 56654) 118 ML/MIN/1.73 eGFR NON- AMER. (test code = 71099) 102 ML/MIN/1.73 CALC BUN/CREAT (test code = 2235) 21 RATIO SODIUM (test code = 2231) 137 MEQ/L POTASSIUM (test code = 2228) 4.6 MEQ/L CHLORIDE (test code = 2215) 97 MEQ/L CARBON DIOXIDE (test code = 2206) 29 MEQ/L CALCIUM (test code = 2209) 10.2 MG/DL PROTEIN, TOTAL (test code = 2229) 7.9 G/DL ALBUMIN (test code = 2201) 4.6 G/DL CALC GLOBULIN (test code = 2240) 3.3 G/DL CALC A/G RATIO (test code = 2234) 1.4 RATIO BILIRUBIN, TOTAL (test code = 2207) 0.2 MG/DL ALKALINE PHOSPHATASE (test code = 2204) 135 U/L AST (test code = 2218) 12 U/L ALT (test code = 2219) 17 U/L LIPID [id number] 00:00:00* Test Item Value Reference Range Interpretation Comme nts CHOLESTEROL (test code = 2210) 229 MG/DL TRIGLYCERIDES (test code = 2232) 244 MG/DL HDL CHOLESTEROL (test code = 2220) 61 MG/DL CALC LDL CHOL (test code = 2237) 119 MG/DL RISK RATIO LDL/HDL (test cod e = 2238) 1.95 RATIO CBC W/AUTO [id number] 00:00:00* Test Item Value Reference Range Interpretation Comme nts WBC (test code = 1001) 12.2 K/UL RBC (test code = 1002) 5.49 M/UL HEMOGLOBIN (test code = 1003) 16.3 G/DL HEMATOCRIT (test code = 1004) 48.5 % MCV (test code = 1005) 88.3 fL MCH (test code = 1006) 29.7 PG MCHC (test code = 1007) 33.6 G/DL RDW (test code = 1038) 12.2 % NEUTROPHILS (test code = 1008) 64.1 % LYMPHOCYTES (test code = 1010) 29.0 % MONOCYTES (test code = 1011) 5.3 % EOSINOPHILS (test code = 1012) 1.0 % BASOPHILS (test code = 1013) 0.6 % PLATELET COUNT (test code = 1015) 341 K/UL HEMOGLOBIN [id number] 00:00:00* Test Item Value Reference Range Interpretation Comme nts HEMOGLOBIN A1c (test code = 96392) 13.5 % MICROALBUMIN/CREATININE, RANDOM AND [id number] 00:00:00* Test Item Value Reference Range Interpretation Comme nts CREATININE, URINE, CONC. (te st code = 2072) 30.4 MG/DL ALBUMIN, URINE, RANDOM (test code = 98390) 0.6 MG/DL CALC ALBUMIN/CREAT, RND (nasreen t code = 01787) 20 MG/G CULTURE, [id number] 00:00:00* Test Item Value Reference Range Interpretation Comme nts CULTURE, URINE (test code = 15110) SPECIMEN NUMBER: [id number] CULTURE, [id number] 00:00:00* Test Item Value Reference Range Interpretation Comme nts CULTURE, URINE (test code = 79514) SPECIMEN NUMBER: [id number] LIPID [id number] 00:00:00* Test Item Value Reference Range Interpretation Comme nts CHOLESTEROL (test code = 2210) 243 MG/DL TRIGLYCERIDES (test code = 2232) 181 MG/DL HDL CHOLESTEROL (test code = 2220) 43 MG/DL CALC LDL CHOL (test code = 2237) 164 MG/DL RISK RATIO LDL/HDL (test cod e = 2238) 3.81 RATIO LIPID [id number] 00:00:00* Test Item Value Reference Range Interpretation Comme nts CHOLESTEROL (test code = 2210) 243 MG/DL TRIGLYCERIDES (test code = 2232) 181 MG/DL HDL CHOLESTEROL (test code = 2220) 43 MG/DL CALC LDL CHOL (test code = 2237) 164 MG/DL RISK RATIO LDL/HDL (test cod e = 2238) 3.81 RATIO CBC W/AUTO [id number] 00:00:00* Test Item Value Reference Range Interpretation Comme nts WBC (test code = 1001) 15.4 K/UL RBC (test code = 1002) 5.38 M/UL HEMOGLOBIN (test code = 1003) 15.5 G/DL HEMATOCRIT (test code = 1004) 47.2 % MCV (test code = 1005) 87.7 fL MCH (test code = 1006) 28.8 PG MCHC (test code = 1007) 32.8 G/DL RDW (test code = 1038) 13.1 % NEUTROPHILS (test code = 1008) 70.3 % LYMPHOCYTES (test code = 1010) 23.0 % MONOCYTES (test code = 1011) 5.8 % EOSINOPHILS (test code = 1012) 0.5 % BASOPHILS (test code = 1013) 0.4 % PLATELET COUNT (test code = 1015) 417 K/UL HEMOGLOBIN [id number] 00:00:00* Test Item Value Reference Range Interpretation Comme nts HEMOGLOBIN A1c (test code = 26188) >15.5 % COMPREHENSIVE METABOLIC [id number] 00:00:00* Test Item Value Reference Range Interpretation Comme nts GLUCOSE (test code = 2217) 421 MG/DL BUN (test code = 2208) 16 MG/DL CREATININE (test code = 2214) 0.72 MG/DL eGFR AMER. (test cod e = 19705) 112 ML/MIN/1.73 eGFR NON- AMER. (test code = 51306) 96 ML/MIN/1.73 CALC BUN/CREAT (test code = 2235) 22 RATIO SODIUM (test code = 2231) 134 MEQ/L POTASSIUM (test code = 2228) 4.5 MEQ/L CHLORIDE (test code = 2215) 90 MEQ/L CARBON DIOXIDE (test code = 2206) 28 MEQ/L CALCIUM (test code = 2209) 10.5 MG/DL PROTEIN, TOTAL (test code = 2229) 8.2 G/DL ALBUMIN (test code = 2201) 4.5 G/DL CALC GLOBULIN (test code = 2240) 3.7 G/DL CALC A/G RATIO (test code = 2234) 1.2 RATIO BILIRUBIN, TOTAL (test code = 2207) 0.2 MG/DL ALKALINE PHOSPHATASE (test code = 2204) 146 U/L AST (test code = 2218) 9 U/L ALT (test code = 2219) 13 U/L [id number] 00:00:00* Test Item Value Reference Range Interpretation Comme nts TSH, THIRD GENERATION (test code = 2821) 0.933 UIU/ML URINALYSIS W/REFLEX [id number] 00:00:00* Test Item Value Reference Range Interpretation Comme nts COLOR (test code = 1501) YELLOW APPEARANCE (test code = 1502) SLIGHTLY CLOUDY SPECIFIC GRAVITY (test code = 1503) 1.028 LEUKOCYTE ESTERASE (test cod e = 1504) NEGATIVE NITRITE (test code = 1505) POSITIVE pH (test code = 1506) 5.0 PROTEIN (test code = 1507) NEGATIVE GLUCOSE (test code = 1508) 3+ KETONES (test code = 1509) 1+ UROBILINOGEN (test code = 1510) <2.0 MG/DL BILIRUBIN (test code = 1511) NEGATIVE OCCULT BLOOD (test code = 1512) TRACE WHITE BLOOD CELLS (test code = 1513) 0-5 /HPF RED BLOOD CELLS (test code = 1514) 0-2 /HPF EPITHELIAL CELLS (test code = 05998) 0-5 /HPF BACTERIA (test code = 1515) TRACE CBC W/AUTO [id number] 00:00:00* Test Item Value Reference Range Interpretation Comme nts WBC (test code = 1001) 15.4 K/UL RBC (test code = 1002) 5.38 M/UL HEMOGLOBIN (test code = 1003) 15.5 G/DL HEMATOCRIT (test code = 1004) 47.2 % MCV (test code = 1005) 87.7 fL MCH (test code = 1006) 28.8 PG MCHC (test code = 1007) 32.8 G/DL RDW (test code = 1038) 13.1 % NEUTROPHILS (test code = 1008) 70.3 % LYMPHOCYTES (test code = 1010) 23.0 % MONOCYTES (test code = 1011) 5.8 % EOSINOPHILS (test code = 1012) 0.5 % BASOPHILS (test code = 1013) 0.4 % PLATELET COUNT (test code = 1015) 417 K/UL HEMOGLOBIN [id number] 00:00:00* Test Item Value Reference Range Interpretation Comme nts HEMOGLOBIN A1c (test code = 97824) >15.5 % COMPREHENSIVE METABOLIC [id number] 00:00:00* Test Item Value Reference Range Interpretation Comme nts GLUCOSE (test code = 2217) 421 MG/DL BUN (test code = 2208) 16 MG/DL CREATININE (test code = 2214) 0.72 MG/DL eGFR AMER. (test cod e = 39894) 112 ML/MIN/1.73 eGFR NON- AMER. (test code = 47674) 96 ML/MIN/1.73 CALC BUN/CREAT (test code = 2235) 22 RATIO SODIUM (test code = 2231) 134 MEQ/L POTASSIUM (test code = 2228) 4.5 MEQ/L CHLORIDE (test code = 2215) 90 MEQ/L CARBON DIOXIDE (test code = 2206) 28 MEQ/L CALCIUM (test code = 2209) 10.5 MG/DL PROTEIN, TOTAL (test code = 2229) 8.2 G/DL ALBUMIN (test code = 2201) 4.5 G/DL CALC GLOBULIN (test code = 2240) 3.7 G/DL CALC A/G RATIO (test code = 2234) 1.2 RATIO BILIRUBIN, TOTAL (test code = 2207) 0.2 MG/DL ALKALINE PHOSPHATASE (test code = 2204) 146 U/L AST (test code = 2218) 9 U/L ALT (test code = 2219) 13 U/L [id number] 00:00:00* Test Item Value Reference Range Interpretation Comme nts TSH, THIRD GENERATION (test code = 2821) 0.933 UIU/ML URINALYSIS W/REFLEX [id number] 00:00:00* Test Item Value Reference Range Interpretation Comme nts COLOR (test code = 1501) YELLOW APPEARANCE (test code = 1502) SLIGHTLY CLOUDY SPECIFIC GRAVITY (test code = 1503) 1.028 LEUKOCYTE ESTERASE (test cod e = 1504) NEGATIVE NITRITE (test code = 1505) POSITIVE pH (test code = 1506) 5.0 PROTEIN (test code = 1507) NEGATIVE GLUCOSE (test code = 1508) 3+ KETONES (test code = 1509) 1+ UROBILINOGEN (test code = 1510) <2.0 MG/DL BILIRUBIN (test code = 1511) NEGATIVE OCCULT BLOOD (test code = 1512) TRACE WHITE BLOOD CELLS (test code = 1513) 0-5 /HPF RED BLOOD CELLS (test code = 1514) 0-2 /HPF EPITHELIAL CELLS (test code = 56866) 0-5 /HPF BACTERIA (test code = 1515) TRACE Notes Date/Time Note Provider Source 2023-11-27 08:25:10 Chief Complaint Patient presents with Follow-up 2 month follow up for PERFECTO Diamond LVN [facility] 2023-09-24 13:19:52 Chief Complaint Patient presents with Physical Patient is not fasting. No other issues to discuss Luanne Odom MA II [facility] 2023-08-20 14:19:07 Chief Complaint Patient presents with New Patient Establish Care Changing Doctors due to insurance Miranda Diamond LVN [facility] 2023-06-26 01:30:00 Pt given printed and verbal discharge instructions regarding hyperglycemia Prescriptions provided Pt verbalized understanding of instructions, pt awake alert oriented, resp reg unlabored, skin w/d, color appropriate for race, moves all ext well,pt encouraged to follow up with pcp Advised to seek medical attention for new/prolonged/worsening of symptoms No adverse reaction to meds given in ER noted upon discharge PIV d'cd, dressing to site, catheter in tact. Awake, alert oriented, resp reg unlabored, skin w/d, pt leaving amb with steady gait, in no apparent distress T COORDINATOR Anahi Pang RN [facility] 2023-06-25 23:36:13 Vomiting since last Thursday. Feeling dizzy tonight checked glucose greater than 600, took 30 units Lantus Checked glucose later and was in 400's, felt dizzy again and glucose was up in 500's Vomited just prior to arrival T COORDINATOR [facility] 2023-06-25 23:25:00 [facility] Emergency Department Note Patient Name: August Date of : 1965 57 year old female Treatment Room: [facility] Primary Care Physician: Gennaro Martínez Patient Escorted by: Self [9] Mode of Arrival: Personal means [1] EMS Treatment Prior to ED Arrival: TRACTOR DRIVER TEAMSTER treatment: Medication (comment) TRACTOR DRIVER TEAMSTER treatment comments: Lantus @ [phone] Travel and Exposure Screening: Symptoms Does patient have any of these symptoms?: (not recorded) Exposure Screening Has patient had contact with someone with a communicable disease in the last month?: (not recorded) Diseases exposed to:: (not recorded) Is Patient ?: (not recorded) Exposure Date: (not recorded) Chief Complaint: Chief Complaint Patient presents with Hyperglycemia History of Present Illness: Jenifer Multani is a 57 year old female who presents to the ED for evaluation of hyperglycemia. Pt reports that her blood glucose reading was "high" earlier tonight. Pt reports that she is currently under a lot of stress as family has moved in with her and her home is in chaos. Pt reports that he was diagnosed in October with metastatic cancer and three months later. Denies any URI or UTI symptoms. Pt has been vomiting that began 6 days ago and usually occurs at HS. Hs vomited X 1 today. Denies any abdominal pain. No urinary symptoms. Denies any chest pain or discomfort. No SOB/Dyspnea. Pt took Lantus 30 Units at 5:00 PM this evening prior to ED visit History provided by: Medical records and patient coke drawer used: No Hyperglycemia Blood sugar level TRACTOR DRIVER TEAMSTER: "HIGH" Severity: Moderate Onset quality: Gradual Duration: 1 day Timing: Sporadic Chronicity: New Diabetes status: Controlled with oral medications Current diabetic therapy: Januvia, Lantus Time since last antidiabetic medication: 3 hours Context: noncompliance Context: not change in medication, not insulin pump use, not recent change in diet and not recent illness Relieved by: Nothing Ineffective treatments: Insulin Associated symptoms: nausea Associated symptoms: no abdominal pain, no altered mental status, no blurred vision, no chest pain, no confusion, no dehydration, no diaphoresis, no dizziness, no dysuria, no fatigue, no fever, no increased appetite, no increased thirst, no malaise, no polyuria, no shortness of breath, no syncope, no vomiting, no weakness and no weight change Risk factors: no hx of DKA, no obesity, no pancreatic disease, no and no recent steroid use Past Medical History/Immunizations: Anxiety DMT2 Diabetic neuropathy Arthritis HLD Tachycardia NOS X 3 years Tetanus received in last 5 years: Yes Childhood immunizations: Up-to-date Allergies: Allergies Allergen Reactions Victoza [Liraglutide] Unknown - See comments Past Social History: Substance & Sexual Activity No substance use or sexual activity history on file. Past Surgical History: Cholecystectomy 30 years ago C/S X 1 BTL Review of Systems: Review of Systems Constitutional: Negative. Negative for diaphoresis, fatigue and fever. HENT: Negative. Eyes: Negative. Negative for blurred vision. Respiratory: Negative. Negative for shortness of breath. Breasts: Negative. Cardiovascular: Negative. Negative for chest pain and syncope. Gastrointestinal: Positive for nausea. Negative for abdominal distention, abdominal pain, anal bleeding, blood in stool, constipation, diarrhea, rectal pain and vomiting. Genitourinary: Negative. Negative for dysuria and polyuria. Musculoskeletal: Negative. Skin: Negative. Neurological: Negative. Negative for dizziness and weakness. Psychiatric/Behavioral: Negative. Negative for confusion. All other systems reviewed and are negative. Endocrine: Endocrine negativeNegative for polydipsia and polyuria. Physical Exam: ED Triage Vitals [06/25/23 2338] Weight 50.1 kg (110 lb 6.4 oz) Actual or estimated Actual Height 1.549 m (5' 1") BP (!) 145/87 Pulse 102 Resp 16 Temp 37.1 ?C (98.8 ?F) Temp source Oral SpO2 100 % Measured on Room air Physical Exam Vitals and nursing note reviewed. Constitutional: General: She is not in acute distress. Appearance: Normal appearance. She is well-developed and normal weight. She is not ill-appearing or toxic-appearing. HENT: Head: Normocephalic and atraumatic. Right Ear: Tympanic membrane, ear canal and external ear normal. Left Ear: Tympanic membrane, ear canal and external ear normal. Nose: Nose normal. No congestion or rhinorrhea. Mouth/Throat: Mouth: Mucous membranes are moist. Pharynx: Oropharynx is clear. No oropharyngeal exudate or posterior oropharyngeal erythema. Eyes: General: No scleral icterus. Right eye: No discharge. Left eye: No discharge. Extraocular Movements: Extraocular movements intact. Conjunctiva/sclera: Conjunctivae normal. Pupils: Pupils are equal, round, and reactive to light. Neck: Thyroid: No thyromegaly. Cardiovascular: Rate and Rhythm: Normal rate and regular rhythm. Pulses: Normal pulses. Heart sounds: Normal heart sounds. No murmur heard. Pulmonary: Effort: Pulmonary effort is normal. No respiratory distress. Breath sounds: Normal breath sounds. No stridor. No wheezing, rhonchi or rales. Chest: Chest wall: No tenderness. Abdominal: General: Bowel sounds are normal. There is no distension. Palpations: Abdomen is soft. There is no mass. Tenderness: There is no abdominal tenderness. There is no right CVA tenderness, left CVA tenderness, guarding or rebound. Hernia: No hernia is present. Musculoskeletal: General: No swelling, tenderness, deformity or signs of injury. Normal range of motion. Cervical back: Normal range of motion and neck supple. No rigidity or tenderness. Right lower leg: No edema. Left lower leg: No edema. Lymphadenopathy: Cervical: No cervical adenopathy. Skin: General: Skin is warm and dry. Capillary Refill: Capillary refill takes less than 2 seconds. Coloration: Skin is not jaundiced or pale. Findings: No bruising, erythema, lesion or rash. Neurological: General: No focal deficit present. Mental Status: She is alert and oriented to person, place, and time. Cranial Nerves: No cranial nerve deficit. Sensory: No sensory deficit. Motor: No weakness or abnormal muscle tone. Coordination: Coordination normal. Gait: Gait normal. Deep Tendon Reflexes: Reflexes normal. Psychiatric: Mood and Affect: Mood normal. Behavior: Behavior normal. Thought Content: Thought content normal. Judgment: Judgment normal. Radiology: No orders to display Lab Results: Lab Results POCT GLUCOSE (AUTOMATED) - Abnormal Result Value Ref Range POCT GLU 485 (*) 70 - 110 mg/dL COMP. METABOLIC PANEL (68433) - Abnormal NA 129 (*) 135 - 145 mmol/L K 3.5 3.5 - 5.0 mmol/L CL 91 (*) 98 - 108 mmol/L CO2 TOTAL 34 (*) 23 - 31 mmol/L AGAP 4 2 - 16 BUN 16 7 - 23 mg/dL GLUCOSE 486 (*) 70 - 110 mg/dL CREATININE 0.68 0.50 - 1.04 mg/dL TOTAL BILI 0.6 0.1 - 1.1 mg/dL CALCIUM 8.8 8.6 - 10.6 mg/dL T PROTEIN 7.5 6.3 - 8.2 g/dL ALBUMIN 3.5 3.5 - 5.0 g/dL ALK PHOS 219 (*) 34 - 122 U/L ALTv 19 5 - 35 U/L AST(SGOT) 30 13 - 40 U/L eGFR 101.7 mL/min/1.73m2 CBC WITH DIFF - Abnormal WBC 9.89 4.30 - 11.10 10*3/?L RBC 4.99 3.93 - 5.25 10*6/?L HGB 14.1 11.6 - 15.0 g/dL HCT 42.2 35.7 - 45.2 % MCV 84.6 80.6 - 95.5 fL MCH 28.3 25.9 - 32.8 pg MCHC 33.4 31.6 - 35.1 g/dL RDW-SD 41.5 39.0 - 49.9 fL RDW-CV 13.4 12.0 - 15.5 % PLT 336 166 - 358 10*3/?L MPV 11.8 9.5 - 12.9 fL NRBC/100 WBC 0.0 0.0 - 10.0 /100 WBCs NRBC x10 3 <0.01 10*3/?L SEG % 56 33 - 76 % LYMPH % 36 14 - 54 % MONO % 4 0 - 4 % EOS % 4 (*) 0 - 3 % ANC 5.54 1.88 - 7.09 10*3/uL URINALYSIS - Abnormal APPEARANCE Clear Clear COLOR Straw (*) Yellow PH 7.0 4.8 - 8.0 SP GRAVITY 1.020 1.003 - 1.030 GLU U QUAL 500 mg/dL (*) Normal BLOOD Negative Negative KETONES 20 mg/dL (*) Negative PROTEIN Negative Negative UROBILIN Normal Normal BILIRUBIN Negative Negative NITRITE Negative Negative LEUK [place] Negative Negative RBC/HPF 0 0 - 3 HPF WBC/HPF 0 0 - 5 HPF BACTERIA Negative Negative SQ EPITH <1 HPF POCT GLUCOSE(AGE >30DAYS) - Abnormal POCT Glu (age>30days) 359 (*) 70 - 110 mg/dL POCT GLUCOSE (AUTOMATED) - Abnormal POCT GLU 359 (*) 70 - 110 mg/dL LIPASE - Normal LIPASE 214 0 - 220 U/L TROPONIN I - Normal TROPONIN I 0.002 <=0.034 ng/mL Orders and Treatments: Orders Placed This Encounter Procedures POCT GLUCOSE (AUTOMATED) Complete Metabolic Panel CBC with Differential Lipase, Serum Urinalysis Troponin I POCT GLUCOSE(AGE >30DAYS) POCT GLUCOSE (AUTOMATED) Orders Placed This Encounter Medications ondansetron (ZOFRAN (PF)) injection 4 mg NaCl 0.9% (NS) IV infusion 1,000 mL insulin regular human (HUMULIN R) injection 6 Units maalox:diphenhydrAMINE:lidoc luis m 2 % viscous 1:1:1 (FIRST-MOU[facility]W[employer] BLM) oral suspension 15 mL pantoprazole (PROTONIX) 40 mg EC tablet proMETHazine 12.5 mg tablet First Provider Eval: ED Events Date/Time Event User Comments 06/25/232340 Medical Screening Begins MAIRA AL MD -- 06/25/232340 First Provider Evaluation MAIRA AL MD -- ED COURSE ED Course as of 06/26/23211Jun 26, 2023 0125 ALK PHOS(!): 219 [[place]] 0125 POCT GLU(!): 359 [[place]] 0124 GLUCOSE(!!): 486 [[place]] 0124 CO2 TOTAL(!): 34 [[place]] 0124 POCT Glu (age>30days)(!): 359 [[place]] ED Course User Index [[place]] Maira Al MD Diagnosis/Impression as of 06/26/23211 Hyperglycemia due to diabetes mellitus Alkaline phosphatase elevation Epigastric pain Procedures: Procedures MDM: Medical Decision Making August Marjorie is a 57 year old female with numerous medical conditions as listed above who presents to the ED with hyperglycemia Problems Addressed: Alkaline phosphatase elevation: chronic illness or injury Hyperglycemia due to diabetes mellitus: acute illness or injury Amount and/or Complexity of Data Reviewed Labs: ordered. Decision-making details documented in ED Course. Risk OTC drugs. Prescription drug management. Flowsheet Documentation: Scoring Tools: No data recorded Disposition/Condition: ED Disposition ED Disposition Disch - Home Condition Stable Comment -- Discharge Medications: Patient's Medications START taking these medications PANTOPRAZOLE (PROTONIX) 40 MG EC TABLET Take 1 tablet by mouth in the morning. PROMETHAZINE 12.5 MG TABLET Take 1 tablet by mouth every 4 (four) hours as needed for Nausea and Vomiting (N/V). CONTINUE taking these medications which have NOT CHANGED GABAPENTIN (NEURONTIN ORAL) Take by mouth. GLIMEPIRIDE ORAL Take by mouth. IBUPROFEN 600 MG TABLET Take 1 tablet by mouth every 6 (six) hours as needed for Pain (scale 1-3) or Pain (scale 4-6). METFORMIN HCL (METFORMIN ORAL) Take by mouth. SEMAGLUTIDE ORAL Take by mouth. START taking Modified Medications as Prescribed No medications on file STOP taking these medications No medications on file Follow-up: Contact information for follow-up Gennaro Martínez Specialty: [employer]ILY [address] [place] [address] Be Estrada MD Specialty: IM-GASTROENTEROLOGY [address] [facility] [id number] Electronically signed by: Maira Al MD 06/26/23 0136 Maira Al MD 06/26/23 0141 Maira Al MD 06/26/23 0213 [facility]
[2024-02-05] MEDS ORDERED: MORPHINE 4 MG/ML SYR ONE (12:30)
[2024-02-05] MEDS ORDERED: ASPIRIN 81 MG CHEWABLE TABLET ONE (12:30)
[2024-02-05] MEDS ORDERED: TICAGRELOR 90 MG TABLET PO ONE ×2 (12:36→12:52)
[2024-02-05] MEDS ORDERED: HEPARIN 5000 UNIT/ML 1 ML VIAL ONE (12:36)
[2024-02-05] MEDS ORDERED: HEPARIN/D5W 25,000 UNIT/500 ML BAG IV ONE (12:37)
--- NOTE | 2024-02-05 12:37 | ER ---
Nurse's Notes [facility] Arias Name: Jenifer Amador Age: 58 yrs Sex: Female : 1965 Arrival Date: 02/05/2024 Time: 12:18 Bed 3 Private MD: Diagnosis: ST elevation (STEMI) myocardial infarction involving other coronary artery of anterior wall Presentation: 02/04 12:24 Chief complaint: Left sided chest pain that radiates to left arm and neck x 3 hours. hb Coronavirus screen: At this time, the client does not indicate any symptoms associated with coronavirus-19. Ebola Screen: No symptoms or risks identified at this time. Initial Sepsis Screen: Does the patient meet any 2 criteria? No. Patient's initial sepsis screen is negative. Does the patient have a suspected source of infection? No. Patient's initial sepsis screen is negative. Risk Assessment: Do you want to hurt yourself or someone else? Patient reports no desire to harm self or others. Onset of symptoms was February 05, 2024. 12:24 Method Of Arrival: Ambulatory hb 12:24 Acuity: LEYDI 1 hb Historical: - Allergies: 12:30 Victoza 2-Jose; hb - Home Meds: 12:30 gabapentin oral [Active]; hb - PMHx: 12:30 Tachycardia; DM2; hb - Immunization history:: Adult Immunizations up to date. - Infectious Disease History:: Denies. - Social history:: Smoking status: Patient denies any tobacco usage or history of. Screenin:51 [facility] ED Fall Risk Assessment (Adult) History of falling in the last 3 months, tm6 including since admission No falls in past 3 months (0 pts) Confusion or Disorientation No (0 pts) Intoxicated or Sedated No (0 pts) Impaired Gait No (0 pts) Mobility Assist Device Used No (0 pt) Altered Elimination No (0 pt) Score/Fall Risk Level 0 - 2 = Low Risk Oriented to surroundings, Maintained a safe environment, Educated pt \T\ family on fall prevention, incl call for assistance when getting out of bed. Abuse screen: Denies threats or abuse. Denies injuries from another. Nutritional screening: No deficits noted. Tuberculosis screening: No symptoms or risk factors identified. Assessment: 12:51 General: Appears distressed, Behavior is cooperative. Pain: Complains of pain in chest tm6 Pain radiates to left arm Pain currently is 10 out of 10 on a pain scale. Pain began 3 hours ago. Neuro: Level of Consciousness is awake, alert, obeys commands, Oriented to person, place, time, situation. Cardiovascular: Reports chest pain, Patient's skin is warm and dry. Chest pain is described as severe, Pain is 10 out of 10 on a pain scale. is located in left began 3 hours prior to arrival. Respiratory: Airway is patent Respiratory effort is even, labored, Respiratory pattern is symmetrical, tachypnea. GI: Abdomen is flat, non-distended. : No signs and/or symptoms were reported regarding the genitourinary system. EENT: No signs and/or symptoms were reported regarding the EENT system. Derm: No signs and/or symptoms reported regarding the dermatologic system. Musculoskeletal: No signs and/or symptoms reported regarding the musculoskeletal system. Vital Signs: 12:24 BP 153 / 91; Pulse 118; Resp 20; Temp 97.8; Pulse Ox 100% on R/A; Weight 49.44 kg; hb Height 5 ft. 1 in. ; Pain 10/10; 12:31 BP 134 / 81; Pulse 101; Resp 18; Pulse Ox 100% on R/A; Pain 10/10; tm6 12:24 Body Mass Index 20.60 (49.44 kg, 154.94 cm) hb 12:24 Pain Scale: Adult hb 12:31 Pain Scale: Adult tm6 ED Course: 12:19 Patient arrived in ED. mg5 12:19 Thomas Booth MD is Attending Physician. ec2 12:26 Jacobo Estes RN is Primary Nurse. tm6 12:26 Inserted saline lock: 18 gauge in right antecubital area, using aseptic technique. hb Blood collected. Flushed with 10 mL NS. 12:27 EKG done, by ED staff, reviewed by Thomas Booth MD. tm6 12:28 Basic Metabolic Panel Sent. tm6 12:28 CBC with Diff Sent. tm6 12:28 NT PRO-BNP Sent. tm6 12:28 PT-INR Sent. tm6 12:28 Troponin HS Sent. tm6 12:30 Triage completed. hb 12:31 No provider procedures requiring assistance completed. Patient maintains SpO2 tm6 saturation greater than 95% on room air. 12:31 Arm band placed on. hb 12:31 Patient has correct armband on for positive identification. Placed in gown. Bed in low tm6 position. Call light in reach. Side rails up X 1. Provided Education on: plan of care. Client placed on continuous cardiac and pulse oximetry monitoring. NIBP monitoring applied. panel monitor on. Pulse ox on. NIBP on. 12:35 Inserted saline lock: 18 gauge in left antecubital area, using aseptic technique. hb Flushed with 10 mL NS. 12:36 Kishan Dahl MD is Hospitalizing Provider. ec2 12:47 XRAY Chest (1 view) In Process Unspecified. EDMS 12:55 Patient admitted, IV remains in place. tm6 12:58 CM attempted initial assessment, patient transported to microbiological lab technician. ane Administered Medications: 12:34 Drug: morphine IVP or IV 4 mg IVP once over 4 mins Route: IVP; Infused Over: 4 mins; tm6 Site: right antecubital; 12:57 Follow up: Response: No adverse reaction tm6 12:35 Drug: Aspirin PO Chewable Tablet 324 mg PO once; 81 mg tablets x 4 Route: PO; tm6 12:57 Follow up: Response: No adverse reaction tm6 12:37 Drug: Brilinta - Ticagrelor PO 180 mg PO once; loading dose Route: PO; tm6 12:40 Drug: Heparin (TN-Bolus with thrombolytic) - HEParin IVP 60 units/kg IVP once; Max 4000 ja1 units {Co-Signature: tmAnayeli (Jacobo Estes RN).} Route: IVP; Site: right antecubital; 12:41 Drug: Heparin (TN Drip) 12 units/kg/[place] - ([place] [address] units, D5W IV 500 ml) IV at ja1 calculated rate Per protocol; Max initial rate 1000 units/hr {Co-Signature: tm6 (Jacobo Estes RN).} Route: IV; Rate: calculated rate; Site: right antecubital; Medication: 12:51 VIS not applicable for this client. tm6 Outcome: 12:36 Decision to Hospitalize by Provider. ec2 12:55 Admitted to [employer] Taker accompanied by nurse, via stretcher, on monitor, with chart, tm6 12:55 critical 12:55 Instructed on the need for admit, 13:08 Patient left the ED. tm6 Signatures: Dispatcher [employer] EDBerta Rivas, RN RN hb Russell Noyola, RN RN 1 Homa Rodriguez mg5 Thomas Booth MD MD ec2 Jacobo Estes RN RN tm6 Bhavani Collins RN RN ane Masterson, Tawney RN tm6 Corrections: (The following items were deleted from the chart) 12:35 12:28 Inserted saline lock: 20 gauge in right forearm, using aseptic technique. Blood hb collected. Flushed with 10 mL NS tm6 13:05 12:58 Attempted initial assessment, patient transported to microbiological lab technician. chan giles
--- NOTE | 2024-02-05 12:37 | EDPHYS ---
Physician Documentation [facility] Arias Name: Jenifer Amador Age: 58 yrs Sex: Female : 1965 Arrival Date: 02/05/2024 Time: 12:18 Bed 3 Private MD: ED Physician Thomas Booth HPI: 02/04 12:36 This 58 yrs old Female presents to ER via Ambulatory with complaints of Chest ec2 Pain. 12:36 Patient arrives today for evaluation of chest pain. Onset approximately 2 hours prior ec2 to arrival. No medication allergies.. Historical: - Allergies: 12:30 Victoza 2-Jose; hb - Home Meds: 12:30 gabapentin oral [Active]; hb - PMHx: 12:30 Tachycardia; DM2; hb - Immunization history:: Adult Immunizations up to date. - Infectious Disease History:: Denies. - Social history:: Smoking status: Patient denies any tobacco usage or history of. ROS: 12:36 Constitutional: as per hpi ec2 Exam: 12:36 Constitutional: GEN: NAD Head: atraumatic Eyes: EOMI Ears: External ears are ec2 normal. CV: regular rate LUNGS: no respiratory distress ABD: non-distended SKIN: no evidence of rashes MSK: no evidence of trauma Vital Signs: 12:24 BP 153 / 91; Pulse 118; Resp 20; Temp 97.8; Pulse Ox 100% on R/A; Weight 49.44 kg; hb Height 5 ft. 1 in. ; Pain 10/10; 12:31 BP 134 / 81; Pulse 101; Resp 18; Pulse Ox 100% on R/A; Pain 10/10; tm6 12:24 Body Mass Index 20.60 (49.44 kg, 154.94 cm) hb 12:24 Pain Scale: Adult hb 12:31 Pain Scale: Adult tm6 MDM: 12:19 Patient medically screened. ec2 12:36 Data reviewed: vital signs. ED course: Patient arrives today for chest pain. ec2 Examination shows uncomfortable individual who is tachycardic. EKG taken on arrival. EKG independently reviewed and interpreted by me, shows sinus tachycardia, rate 105, ST elevations in anterior leads and ST depressions in the inferior leads. I activated the Inspector Packer and discussed the case with cardiology, who agreed to take patient to Inspector Packer. Will give the patient Brilinta, heparin, aspirin as well as morphine. I discussed case with hospitalist who agrees accept patient for admission. I discussed case with the family as well.. 12:55 ED course: Metabolic profile reassuring. Further dysfunction noted. CBC shows slight ec2 leukocytosis. Troponin within normal ranges. BNP minimally elevated. . 02/04 12:20 Order name: Basic Metabolic Panel; Complete Time: 12:54 ec2 02/04 12:20 Order name: CBC with Diff; Complete Time: 12:54 ec2 02/04 12:20 Order name: NT PRO-BNP; Complete Time: 12:54 ec2 02/04 12:20 Order name: PT-INR; Complete Time: 12:54 ec2 02/04 12:20 Order name: Troponin HS; Complete Time: 12:54 ec2 02/04 12:20 Order name: XRAY Chest (1 view) ec2 02/04 12:48 Order name: Echo with Doppler EDKS 02/04 12:20 Order name: EKG; Complete Time: 12:20 ec2 02/04 12:20 Order name: Cardiac monitoring; Complete Time: 12:27 ec2 02/04 12:20 Order name: EKG - Nurse/Tech; Complete Time: 12:27 ec2 02/04 12:20 Order name: IV Saline Lock; Complete Time: 12:27 ec2 02/04 12:20 Order name: Labs collected and sent; Complete Time: 12:28 ec2 02/04 12:20 Order name: O2 Per Protocol; Complete Time: 12:27 ec2 02/04 12:20 Order name: O2 Sat Monitoring; Complete Time: 12:27 ec2 Administered Medications: 12:34 Drug: morphine IVP or IV 4 mg IVP once over 4 mins Route: IVP; Infused Over: 4 mins; tm6 Site: right antecubital; 12:57 Follow up: Response: No adverse reaction tm6 12:35 Drug: Aspirin PO Chewable Tablet 324 mg PO once; 81 mg tablets x 4 Route: PO; tm6 12:57 Follow up: Response: No adverse reaction tm6 12:37 Drug: Brilinta - Ticagrelor PO 180 mg PO once; loading dose Route: PO; tm6 12:40 Drug: Heparin (ND-Bolus with thrombolytic) - HEParin IVP 60 units/kg IVP once; Max 4000 ja1 units {Co-Signature: tm6 (Jacobo Estes RN).} Route: IVP; Site: right antecubital; 12:41 Drug: Heparin (ND Drip) 12 units/kg/[place] - ([place] [address] units, D5W IV 500 ml) IV at ja1 calculated rate Per protocol; Max initial rate 1000 units/hr {Co-Signature: tm6 (Jacobo Estes RN).} Route: IV; Rate: calculated rate; Site: right antecubital; Disposition: 12:55 Critical Care:. ec2 Disposition Summary: 02/05/24 12:36 Hospitalization Ordered Notes: Hospitalization Status: Inpatient Admission ec2 Provider: Kishan Dahl ec2 Location: Intensive Care Unit ec2 Condition: Stable ec2 Problem: new ec2 Symptoms: are unchanged ec2 Bed/Room Type: Standard ec2 Room Assignment: 2-(02/05/24 12:52) hb Diagnosis - ST elevation (STEMI) myocardial infarction involving other coronary artery of ec2 anterior wall Forms: - Medication Reconciliation Form ec2 - SBAR form ec2 - Leadership Thank You Letter ec2 Critical care time excluding procedures: 12:55 Critical care time: Bedside Care: 25 minutes, Consultation: 7 minutes. Total time: 32 ec2 minutes Signatures: Dispatcher [employer] EDBerta Rivas RN RN Russell Noyola RN RN ja1 Thomas Booth MD MD ec2 Jacobo Estes RN RN tm6 Jacobo Estes RN tm6 Corrections: (The following items were deleted from the chart) 12:20 12:20 BASIC METABOLIC PANEL+C.LAB.BRZ ordered. EDMS EDMS 12:20 12:20 CBC+H.LAB.BRZ ordered. EDMS EDMS 12:20 12:20 PROBNP+C.LAB.BRZ ordered. EDMS EDMS 12:20 12:20 PROTIME (+INR)+COAG.LAB.BRZ ordered. EDMS EDMS 12:20 12:20 Troponin High Sensitivity+C.LAB.BRZ ordered. EDMS EDMS 12:52 12:36 ec2 hb
[2024-02-05 12:39] LABS: Absolute Basophils 0.1 K/uL (0-0.5); Absolute Eosinophils 0.1 K/uL (0-0.5); Absolute Lymphocytes (CBC) 4.5 K/uL (0.7-4.9); Absolute Monocytes 0.8 K/uL (0.1-1.3); Absolute Neutrophil 7.6 K/uL (1.8-8.0); Basophils % 0.6 % (0-1.3); Eosinophils % 0.9 % (0-4.4); Hematocrit 44.4 % (36.0-45.0); Hemoglobin 14.3 g/dL (12.0-15.0); Lymphocytes % 34.7 % (15.3-44.8); MCH 28.8 pg (27.0-35.0); MCHC 32.1 g/dL (32.0-36.0); MCV 89.8 fL (80-100); MPV 8.8 fL (7.6-11.3); Neutrophils % 57.8 % (41.7-73.7); Platelets 373 thou/uL (152-406); RBC Red Blood Cell Count 4.95 M/uL (3.86-4.86); Red Cell Distribution Width 15.3 % (12.1-15.2)
[2024-02-05 12:40] LABS: PT Prothrombin Time 11.9 SECONDS (9.4-12.5); Protime INR 1.06
[2024-02-05] MEDS ORDERED: NA CHLORIDE 0.9% 1,000 ML ONE (12:44)
[2024-02-05] MEDS ORDERED: HEPARIN 10,000 UNIT/10 ML VIAL IV ONE (12:50)
[2024-02-05] MEDS ORDERED: HEPA 1000U/500MLS 2,000 UNIT/1,000 ML BAG IV ONE (12:50)
[2024-02-05] MEDS ORDERED: LIDOCAINE 1% 20 ML MDV ONE (12:50)
[2024-02-05] MEDS ORDERED: VERAPAMIL HCL 10 MG/4 ML VIAL IV ONE (12:51)
[2024-02-05] MEDS ORDERED: MIDAZOLAM HCL 2 MG/2 ML INJ ONE (12:51)
[2024-02-05] MEDS ORDERED: FENTANYL CITR 100 MCG/2 ML ONE (12:51)
[2024-02-05 12:52] LABS: Anion Gap 10.6 mEq/L (5.0-15.0); Potassium 3.6 mEq/L (3.5-5.1); Troponin High Sensitivity 14.5 pg/mL (<58.9)
[2024-02-05] MEDS ORDERED: ASPIRIN 325 MG TAB ONE (12:52)
[2024-02-05] MEDS ORDERED: CLOPIDOGREL 75 MG TABLET ONE (12:52)
[2024-02-05] MEDS ORDERED: ATROPINE SULF 1 MG/10 ML SYR IV ONE (12:53)
--- NOTE | 2024-02-05 13:46 | RAD REPORT ---
EXAMINATION: ONE VIEW CHEST XR CLINICAL INDICATION: Female, 58 years old. Chest pain. TECHNIQUE: 1 View, AP supine, X-ray of the chest was performed. [id number]. COMPARISON: No prior exam. FINDINGS: Lungs and pleura: Clear lungs. No effusion. Heart and mediastinum: Normal heart size. Unremarkable mediastinal contours. Osseous structures: No acute abnormality. Tubes/lines: None Other: None. IMPRESSION: No acute intrathoracic abnormality.
[2024-02-05] MEDS ORDERED: HEPA 1000U/500MLS 1,000 UNIT/500 ML BAG IV ONE (13:57)
[2024-02-05] MEDS ORDERED: HEPARIN/D5W 25,000 UNIT/500 ML BAG IV SCH (14:52)
[2024-02-05] MEDS ORDERED: MORPHINE 2 MG/ML SYR IV PRN (14:52)
[2024-02-05] MEDS: INSULIN REGULAR (HUMAN) 100 UNIT/ML SQ SCH (15:33)
[2024-02-05] MEDS: NA CHLORIDE 0.9% 1,000 ML IV SCH (15:43)
--- NOTE | 2024-02-05 15:43 | P.HP ---
Certification for Inpatient Patient admitted to: Inpatient With expected LOS: >2 Midnights Patient will require the following post-hospital care: None Practitioner: I am a practitioner with admitting privileges, knowledge of patient current condition, hospital course, and medical plan of care. Services: Services provided to patient in accordance with Admission requirements found in Title 42 Section 412.3 of the Code of Federal Regulations Patient History Date of Service: 02/05/24 Reason for admission: ACS/STEMI History of Present Illness: 58-year-old female with history of insulin-dependent diabetes, hypertension, hyperlipidemia, tobacco use disorder presents to the emergency department chief complaint of severe chest pain. Upon arrival to ED patient was noted to have ST elevation with reciprocal changes and active chest pain concerning for possible STEMI. Cardiology was immediately contacted who arranged for emergent heart catheterization. Patient will be admitted for suspected ACS/STEMI. Allergies No Known Allergies Allergy (Unverified 02/05/24 12:51) - Past Medical/Surgical History -: Diabetes mellitus type 2insulin-dependent -: Hypertension -: Hyperlipidemia -: Tobacco use disorder Past Surgical History: Unable to obtain - Family History Family History: Reviewed- Non-Contributory - Social History Smoking Status: Heavy Tobacco smoker (>10 cigarettes/day) Alcohol use: No CD- Drugs: No Caffeine use: Yes Place of Residence: Home Review of Systems 10-point ROS is otherwise unremarkable Cardiovascular: Chest Pain Physical Examination - Vital Signs Temperature: 97.8 F Blood Pressure: 134/81 Pulse: 101 Respirations: 18 - Physical Exam General: Alert, In no apparent distress, Oriented x3 HEENT: Atraumatic, PERRLA, EOMI Neck: Supple, 2+ carotid pulse no bruit, No LAD Respiratory: Clear to auscultation bilaterally, Normal air movement Cardiovascular: Regular rate/rhythm, Normal S1 S2 Gastrointestinal: Normal bowel sounds Musculoskeletal: No tenderness Integumentary: No rashes Neurological: Normal gait, Normal speech, Normal strength at 5/5 x4 extr - Studies Laboratory Data (last 24 hrs) 02/05/24 02/05/24 02/05/24 12:27 12:27 12:27 WBC 13.10 H Hgb 14.3 Hct 44.4 Plt Count 373 PT 11.9 INR 1.06 Sodium 135 L Potassium 3.6 BUN 14 Creatinine 1.04 H Glucose 225 H Assessment and Plan - Plan Assessment: ACS/STEMI secondary to 99% LAD occlusion, 90% RCA occlusion status post PCI Diabetes mellitus type 2insulin-dependent Hypertension Hyperlipidemia Tobacco use disorder Plan: ACS/STEMI secondary to 99% LAD occlusion, 90% RCA occlusion status post PCI S/P PCI with three stents placed Will monitor in ICU overnight Continue aspirin, Plavix, statin, metoprolol Appreciate further cardiology Diabetes mellitus type 2insulin-dependent ACHS accucheck/SSI A1c in AM Hypertension Hyperlipidemia Continue home indications when verified Tobacco use disorder Counseled extensively on need for tobacco cessation Provided with NicoDerm patch DVT PPX: Lovenox Code status: Full Discharge Plan: Home Plan to discharge in: 48 Hours - Advance Directives Does patient have a Living Will: Yes Does patient have a Durable POA for Healthcare: Yes - Code Status/Comfort Care Code Status Assessed: Yes (Full code) Critical Care: No Time Spent Managing Pts Care (In Minutes): 64
[2024-02-05 16:18] VITALS: BMI 21.3
--- NOTE | 2024-02-05 16:22 | P.CNS ---
Date of Consult: 02/05/24 Chief Complaint: ACS/STEMI History of Present Illness: Patient with PMH of HTN, HLD, DM, tobacco abuse presented with chest pain, pressure in nature that has been going since Thursday, got worse overnight, denies any other cardiac symptoms. Allergies No Known Allergies Allergy (Unverified 02/05/24 12:51) Home medications list reviewed: Yes - Past Medical/Surgical History -: Diabetes mellitus type 2insulin-dependent -: Hypertension -: Hyperlipidemia -: Tobacco use disorder - Social History Alcohol use: No CD- Drugs: No Caffeine use: Yes Place of Residence: Home Review of Systems 10-point ROS is otherwise unremarkable Physical Examination Temp Pulse Resp BP Pulse Ox 97.8 F 101 H 18 134/81 02/05/24 15:42 02/05/24 15:42 02/05/24 15:42 02/05/24 15:42 General: Alert, In no apparent distress HEENT: Atraumatic, PERRLA, Mucous membr. moist/pink, EOMI, Sclerae nonicteric Neck: Supple, 2+ carotid pulse no bruit, No LAD, Without JVD or thyroid abnormality Respiratory: Clear to auscultation bilaterally, Normal air movement Cardiovascular: Regular rate/rhythm, Normal S1 S2 Gastrointestinal: Normal bowel sounds, No tenderness Musculoskeletal: No tenderness Integumentary: No rashes Neurological: Normal gait, Normal speech, Normal tone, Normal affect Lymphatics: No axilla or inguinal lymphadenopathy Laboratory Data (last 24 hrs) 02/05/24 02/05/24 02/05/24 12:27 12:27 12:27 WBC 13.10 H Hgb 14.3 Hct 44.4 Plt Count 373 PT 11.9 INR 1.06 Sodium 135 L Potassium 3.6 BUN 14 Creatinine 1.04 H Glucose 225 H - Problems (1) STEMI (ST elevation myocardial infarction) Current Visit: Yes Status: Acute Plan: EKG shows anterior STEMI with inferior ST depression, patient was taken emergently to lab nurse, s/p PCI of LAD and RCA. - Continue ASA 81 mg daily - Continue Plavix 75 mg daily for 12 months. - Lipitor 40 mg daily (2) HTN (hypertension) Current Visit: Yes Status: Acute Plan: Continue Metoprolol 25 mg po BID (3) HLD (hyperlipidemia) Current Visit: Yes Status: Acute Plan: Continue Lipitor 40 mg daily
[2024-02-05] MEDS: METOPROLOL TAR 25 MG TAB PO SCH (17:56)
[2024-02-05] MEDS: ONDANSETRON 4 MG/2 ML VIAL IV PRN (17:57)
[2024-02-05] MEDS: ATORVASTATIN 40 MG TAB PO SCH (21:24)
[2024-02-05 23:34] VITALS: O2SAT 98
[2024-02-06 05:55] LABS: Absolute Basophils 0.1 K/uL (0-0.5); Absolute Eosinophils 0.1 K/uL (0-0.5); Absolute Lymphocytes (CBC) 2.6 K/uL (0.7-4.9); Absolute Monocytes 0.7 K/uL (0.1-1.3); Absolute Neutrophil 10.3 K/uL (1.8-8.0); Basophils % 0.5 % (0-1.3); Eosinophils % 0.4 % (0-4.4); Hematocrit 37.6 % (36.0-45.0); Hemoglobin 12.5 g/dL (12.0-15.0); Lymphocytes % 19.1 % (15.3-44.8); MCH 29.5 pg (27.0-35.0); MCHC 33.3 g/dL (32.0-36.0); MCV 88.5 fL (80-100); MPV 8.5 fL (7.6-11.3); Monocytes % 5.2 % (3.3-12.3); Neutrophils % 74.8 % (41.7-73.7); Nucleated Red Blood Cells % 0.1 % (0-0); Platelets 333 thou/uL (152-406); RBC Red Blood Cell Count 4.25 M/uL (3.86-4.86); Red Cell Distribution Width 15.3 % (12.1-15.2)
[2024-02-06 06:11] LABS: Albumin 2.6 g/dL (3.4-5.0); Albumin/Globulin Ratio 0.7 (1.1-1.8); Anion Gap 7.8 mEq/L (5.0-15.0); Bilirubin Total 0.5 mg/dL (0.2-1.0); Globulin 3.8 g/dL (2.3-3.5); Potassium 3.8 mEq/L (3.5-5.1); Protein, Total 6.4 g/dL (6.4-8.2)
[2024-02-06] MEDS: ASPIRIN EC 81 MG TAB PO SCH (08:17)
[2024-02-06] MEDS: CLOPIDOGREL 75 MG TABLET PO SCH (08:17)
[2024-02-06] MEDS: ENOXAPARIN 40 MG/0.4 ML SQ SCH (08:17)
[2024-02-06 12:37] VITALS: BP 113/72; TEMP 97.2
--- NOTE | 2024-02-06 14:55 | P.DS ---
Admission Date: 02/05/24 Discharge Date: 02/06/24 Disposition: ROUTINE DISCHARGE Discharge Condition: GOOD Reason for Admission: ACS/STEMI Consultations: Cardiology Procedures: Left heart cath 02/04 with 2 stents to LAD and 1 stent to RCA Brief History of Present Illness: 58-year-old female with history of insulin-dependent diabetes, hypertension, hyperlipidemia, tobacco use disorder presents to the emergency department chief complaint of severe chest pain. Upon arrival to ED patient was noted to have ST elevation with reciprocal changes and active chest pain concerning for possible STEMI. Cardiology was immediately contacted who arranged for emergent heart catheterization. Patient will be admitted for suspected ACS/STEMI. Hospital Course: Assessment: ACS/STEMI secondary to 99% LAD occlusion, 90% RCA occlusion status post PCI PAD, right SFA occlusion Diabetes mellitus type 2insulin-dependent Hypertension Hyperlipidemia Tobacco use disorder Patient was admitted to the hospital for STEMI/ACS. She underwent coronary angiogram on 02/04 with 2 stents placed to the LAD and 1 stent to the RCA. She had resolution of her chest pain, she was noted to have a occluded SFA during the coronary angiogram and her pulses were monitored throughout her stay. Posterior tibial pulse present with Doppler to the right lower extremity, extremities warm and skin color is appropriate. Patient stable for discharge and outpatient follow-up, importance of compliance with dual platelet therapy, statin stressed at length as well as need for cessation of tobacco use. Patient was admitted under inpatient status given her STEMI/ACS. Fortunately her cath was able to be completed emergently and she recovered quickly. Please follow-up with cardiologyDr. Zelaya in 1 week Please follow-up with your primary care doctor in 1 week New medications include the following: Plavix 75 mg by mouth once daily Metoprolol 25 mg by mouth twice daily Make sure you continue to take your atorvastatin 40 mg at bedtime-refill sent to the pharmacy You also need to buy dfvs-[id number] baby aspirin 81 mg and take this for the rest of your life Vital Signs/Physical Exam: Temp Pulse Resp BP Pulse Ox 97.2 F 72 16 113/72 100 02/06/24 12:00 02/06/24 12:00 02/06/24 12:00 02/06/24 12:02/06/24 12:00 General: Alert, In no apparent distress, Oriented x3 HEENT: Atraumatic, PERRLA Neck: Supple, JVD not distended Respiratory: Clear to auscultation bilaterally, Normal air movement Cardiovascular: Regular rate/rhythm, Normal S1 S2, Abnormal pulses (RLE, doppler needed to find PT pulse. Known SFA disease, extremity warm, pink) Gastrointestinal: Normal bowel sounds, No tenderness Musculoskeletal: No tenderness Integumentary: No rashes Neurological: Normal speech, Normal tone, Normal affect Lymphatics: No axilla or inguinal lymphadenopathy Laboratory Data at Discharge: WBC 13.80 thou/uL (4.3-10.9) H 02/06/24 05:23 Hgb 12.5 g/dL (12.0-15.0) D 02/06/24 05:23 Hct 37.6 % (36.0-45.0) 02/06/24 05:23 Plt Count 333 thou/uL (152-406) 02/06/24 05:23 PT 11.9 SECONDS (9.4-12.5) 02/05/24 12:27 INR 1.06 02/05/24 12:27 Sodium 139 mEq/L (136-145) 02/06/24 05:23 Potassium 3.8 mEq/L (3.5-5.1) 02/06/24 05:23 BUN 13 mg/dL (7-18) 02/06/24 05:23 Creatinine 0.90 mg/dL (0.55-1.02) 02/06/24 05:23 Glucose 157 mg/dL (74-106) H 02/06/24 05:23 Total Bilirubin 0.5 mg/dL (0.2-1.0) 02/06/24 05:23 AST 67 U/L (15-37) H 02/06/24 05:23 ALT 87 U/L (13-56) H 02/06/24 05:23 Alkaline Phosphatase 151 U/L (45-117) H 02/06/24 05:23 Triglycerides 176 mg/dL (<150) H 02/06/24 05:23 Cholesterol 140 mg/dL (<200) 02/06/24 05:23 HDL Cholesterol 40 mg/dL (40-60) 02/06/24 05:23 Cholesterol/HDL Ratio 3.50 02/06/24 05:23 Home Medications: Dulaglutide [Trulicity] 0.75 mg SQ Q7D 02/05/24 glipiZIDE [Glipizide] 10 mg PO DAILY 02/05/24 Atorvastatin Calcium 40 mg PO BEDTIME #30 tab 02/06/24 Clopidogrel Bisulfate [Plavix*] 75 mg PO DAILY #30 tab 02/06/24 Metoprolol Tartrate [Lopressor*] 25 mg PO BID 6AM 6PM 30 Days #60 tab 02/06/24 New Medications: Atorvastatin Calcium 40 mg PO BEDTIME #30 tab Metoprolol Tartrate [Lopressor*] 25 mg PO BID 6AM 6PM 30 Days #60 tab Clopidogrel Bisulfate [Plavix*] 75 mg PO DAILY #30 tab Physician Discharge Instructions: Patient was admitted to the hospital for STEMI/ACS. She underwent coronary angiogram on 02/04 with 2 stents placed to the LAD and 1 stent to the RCA. She had resolution of her chest pain, she was noted to have a occluded SFA during the coronary angiogram and her pulses were monitored throughout her stay. Posterior tibial pulse present with Doppler to the right lower extremity, extremities warm and skin color is appropriate. Patient stable for discharge and outpatient follow-up, importance of compliance with dual platelet therapy, statin stressed at length as well as need for cessation of tobacco use. Please follow-up with cardiologyDr. Zelaya in 1 week Please follow-up with your primary care doctor in 1 week New medications include the following: Plavix 75 mg by mouth once daily Metoprolol 25 mg by mouth twice daily Make sure you continue to take your atorvastatin 40 mg at bedtime-refill sent to the pharmacy You also need to buy iqea-wit-[id number] baby aspirin 81 mg and take this for the rest of your lifePROBLEM: (list out Acute Problems for the Current visit) GOAL: Clear understanding of disease process INSTRUCTIONS:Patient was admitted to the hospital for STEMI/ACS. She underwent coronary angiogram on 02/04 with 2 stents placed to the LAD and 1 stent to the RCA. She had resolution of her chest pain, she was noted to have a occluded SFA during the coronary angiogram and her pulses were monitored throughout her stay. Posterior tibial pulse present with Doppler to the right lower extremity, extremities warm and skin color is appropriate. Patient stable for discharge and outpatient follow-up, importance of compliance with dual platelet therapy, statin stressed at length as well as need for cessation of tobacco use. Please follow-up with cardiologyDr. Alwash in 1 week Please follow-up with your primary care doctor in 1 week New medications include the following: Plavix 75 mg by mouth once daily Metoprolol 25 mg by mouth twice daily Make sure you continue to take your atorvastatin 40 mg at bedtime-refill sent to the pharmacy You also need to buy iiid-lhj-[id number] baby aspirin 81 mg and take this for the rest of your life Diet: low salt low fat Activity: as tolerated DME DME: Date Ordered: Name of Company: [employer] Services Needed: None Name of Company: Date or Referral: IMMUNIZATION Influenza Vaccine Indicated: Influenza Vaccine Given: Date Given: Pneumonia Vaccine Indicated: No Pneumonia Vaccine Given: Date Given: Prescriptions were sent to [facility] [place] Diet: AHA Activity: Ad silvio Followup: Saturnino Zelaya MD [ACTIVE - CAN ADMIT] - 1 Week NONE,NONE [Primary Care Provider] - 1 Week Time spent managing pt's care (in minutes): 45
[2024-02-06] MEDS ORDERED: NICOTINE 21 MG/PAT TD SCH (17:00)
--- NOTE | 2024-02-08 12:58 | EKG ---
Test Date: 2024-02-05 Test Time: 12:24:34 It Assistant: SRIRAM MEASUREMENT RESULTS: Intervals: Rate: 105 GA: 164 QRSD: 124 QT: 376 QTc: 496 [place]: P: 80 GA: 164 QRS: 239 T: 56 INTERPRETIVE STATEMENTS: Age and gender specific ECG analysis Sinus tachycardia Right bundle branch block ST elevation, consider anterior injury or acute infarct ACUTE NH / STEMI Abnormal ECG No previous ECG available for comparison Electronically Signed On 02-08-24 12:50:08 CDT by Kael Peguero
== END 2024-02-06 13:11 | disposition home or self-care (01) | DRG 322 ==
LOC: ER 12:18 → 3RD-ICU 12:44
PROVIDERS: ADMIT Hospitalist; ATTEND Hospitalist
PROC: 027136Z Dilation of Coronary Artery, Two Arteries with Three Drug-eluting Intraluminal Devices, Percutaneous Approach (ICD-10-PCS; principal; 2024-02-05)
PROC: 4A023N7 Measurement of Cardiac Sampling and Pressure, Left Heart, Percutaneous Approach (ICD-10-PCS; 2024-02-05)
PROC: B2111ZZ Fluoroscopy of Multiple Coronary Arteries using Low Osmolar Contrast (ICD-10-PCS; 2024-02-05)
DX: I21.09 ST elevation (STEMI) myocardial infarction involving other coronary artery of anterior wall (principal); E78.5 Hyperlipidemia, unspecified; E11.51 Type 2 diabetes mellitus with diabetic peripheral angiopathy without gangrene; F17.210 Nicotine dependence, cigarettes, uncomplicated; Z88.8 Allergy status to other drugs, medicaments and biological substances; Z79.84 Long term (current) use of oral hypoglycemic drugs; Z79.899 Other long term (current) drug therapy
CPT/HCPCS: 36415; 71045; 76937; 80048; 80053; 80061; 82947; 83036; 83880; 84484; 85025; 85610; 92928; 93005; 93458; 96374; 96375; 99152; 99153; 99285; C1725; C1893; J0461; J1644; J1650; J2001; J2250; J2405; J3010; J7030; Q9967